=== PATIENT | male | born 1960 | race Caucasian/White ===

== ENCOUNTER → 2016-11-19 | Outpatient (CLI) | payer BC ==
--- NOTE | 2016-11-19 16:32 | CT ---
EXAMINATION TYPE: CT abdomen pelvis wo con DATE OF EXAM: 11/19/2016 COMPARISON: Prior CT 05/05/2013 HISTORY: Left flank and back pain x [address] DLP: 1077.20 mGycm Automated exposure control for dose reduction was used. TECHNIQUE: Helical acquisition of images from the lung bases through the pelvis. FINDINGS: Lack of contrast could compromise sensitivity. LUNG BASES: No significant abnormality is appreciated. Calcified granuloma posterior costophrenic sul cus is stable. AORTA: No significant abnormality is appreciated. LIVER/GB: Stable PANCREAS: No significant abnormality is seen. SPLEEN: No significant abnormality is seen. ADRENALS: No significant abnormality is seen. KIDNEYS: Multiple cystic foci are again noted within the kidneys as on prior exam. There is no eviden t hydronephrosis or renal calculus. No evident ureteral calculus. Suspect there may be ureteropelvic junction stenosis on the left however there is a caliber change in the proximal ureter. REPRODUCTIVE ORGANS: Prostate is enlarged. URINARY BLADDER: No significant abnormality is seen. BOWEL: Areas of wall thickening within the colon are nonspecific, colon is redundant. Difficult to e xclude a mucosal lesion. No evident bowel obstruction. The appendix is normal. FREE AIR: No Free Air is visible. ASCITES: None visible. PELVIC ADENOPATHY: None visualized. RETROPERITONEAL ADENOPATHY: No Retroperitoneal Adenopathy visible. OSSEOUS STRUCTURES: There is a spinal curvature. Degenerative disc changes are noted in the lumbar s pine.. IMPRESSION: NONCONTRAST EXAM. FINDINGS WITHIN THE KIDNEYS DESCRIBED. THERE MAY BE URETEROPELVIC JUNCTION STENO SIS ON THE LEFT. PROSTATIC ENLARGEMENT. FINDINGS IN THE COLON ARE NONSPECIFIC, DIFFICULT TO EXCLUDE A MUCOSAL LESION. Additional findings above.
== END | disposition home or self-care (01) ==
LOC: RADCTMAIN 13:44
PROVIDERS: ATTEND Family Medicine
DX: N40.0 Benign prostatic hyperplasia without lower urinary tract symptoms (principal); R10.9 Unspecified abdominal pain
CPT/HCPCS: 74176

== ENCOUNTER 2016-11-26 10:22 | Day surgery (SDC) | payer BC ==
[2016-11-23 08:44] VITALS: BMI 33.9
[~2016-11-26 10:22] MED LIST: LACTATED RINGERS 1,000 ML IV SCH; LIDOCAINE 1% 20 ML VIAL (10MG/ML) FOR IV START INTRADERMA PRN
[2016-11-26 11:44] VITALS: TEMP 98.1
[2016-11-26] MEDS ORDERED: LIDOCAINE 1% INJ 10MG/ML (20 ML MDV) ONE (12:07)
[2016-11-26] MEDS ORDERED: PROPOFOL 10 MG/ML 20 ML VIAL IV ONE (12:07)
[2016-11-26 12:37] VITALS: RESP 16
--- NOTE | 2016-11-26 12:42 | P.PCN ---
Date of Procedure: 11/26/16 Procedure(s) Performed: Preoperative diagnosis: Screening for neoplasia. Postoperative diagnosis: Sigmoid diverticulosis with no evidence of acute diverticulitis, strictures, polyps or cancer. Low-grade internal hemorrhoids not bleeding at the time of this exam. Preparation: HalfLytely prep. Sedation: Was provided by anesthesia. Brief clinical history: The patient is a 56-year-old male who is scheduled for this evaluation for screening for neoplasia age being her risk factor. The patient has history of rectal bleeding and anemia. Recent CT of the abdomen showed thickening of the bowel wall in various areas. His last exam was in October 2011. He has no abdominal complaints at this time or bleeding. Procedure: With the patient on his left lateral decubitus position and after informed consent and adequate sedation, the perianal area was inspected and it did not show any fissures or fistulas. There were no masses felt on digital rectal examination. The Olympus CFQ 160L video colonoscope was then inserted in the rectum in the usual fashion and advanced to the cecum. The mucosa appeared healthy. No polyps or tumors were seen. There was several diverticular orifices seen scattered in the sigmoid with no evidence of acute diverticulitis or strictures. I retroflexed the endoscope in the rectum before the endoscope was withdrawn. Low-grade internal hemorrhoids were noted with no evidence of bleeding. The patient tolerated the procedure well. Plan: The patient was reassured. Discussed dietary measures and local care for hemorrhoids. He will follow-up with you as planned and I recommended repeat exam in 10 years.
[2016-11-26 12:45] VITALS: BP 138/84; PULSE 67
== END 2016-11-26 13:14 | disposition home or self-care (01) ==
LOC: ORWHC2ENDO 10:22
DX: K57.30 Diverticulosis of large intestine without perforation or abscess without bleeding (principal); K64.8 Other hemorrhoids; D64.9 Anemia, unspecified; K21.9 Gastro-esophageal reflux disease without esophagitis; I10 Essential (primary) hypertension; G47.33 Obstructive sleep apnea (adult) (pediatric); Z99.89 Dependence on other enabling machines and devices; Z79.82 Long term (current) use of aspirin; Z79.899 Other long term (current) drug therapy; Z88.0 Allergy status to penicillin
CPT/HCPCS: 45378; J2001; J2704

== ENCOUNTER → 2016-12-18 | Outpatient (CLI) | payer BC ==
--- NOTE | 2016-12-18 15:21 | CT ---
EXAMINATION TYPE: CT abdomen wo/w con DATE OF EXAM: 12/18/2016 COMPARISON: NONE INDICATION: Renal cysts DLP: 1971 mGycm, Automated exposure control for dose reduction was used. CONTRAST: 100 ml mL of Omnipaque 300. Study performed with Oral Contrast TECHNIQUE: Axial images were obtained from above the diaphragm to the pubic rami in the axial plane a t 5 mm thick sections. Reconstructed images are reviewed on the computer in the coronal plane. FINDINGS: Limited CT sections are obtained the lung bases. There is a 0.8 cm calcification in the posterior me dial left lung base.. CT ABDOMEN: Liver: Hypodensities in the superior medial right lobe liver measuring 1.3 cm may represent hepatic c yst. Additional hepatic cyst may be in the medial aspect of the left lobe liver measuring 0.9 cm. Ser ies 3 image 15. Borders are indistinct and other etiologies are not excluded. Spleen: Normal Pancreas: Normal Adrenal glands: The adrenal glands are normal. Gallbladder: Normal Kidneys: No masses are evident. No hydronephrosis is present. Multiple cysts are present within the kidneys. There is a cyst at the anterior superior pole left kidney measuring 2.9 cm in -2 Hounsfield units. There is a posterior lateral cyst on the left measuring 5.7 cm and -80 Hounsfield units. 2 ad jacent cysts are within the superior lateral pole right kidney measuring 2.6 cm and 6 Hounsfield unit s and 5.4 cm and 0 Hounsfield units. There is a cyst at the inferior pole left kidney measuring 2.6 c m in -7 Hounsfield units. There may be an additional 2 cysts at the inferior pole left kidney measuri ng 5.3 cm in -6 Hounsfield units and 3.9 cm and 5 Hounsfield units. The inferior medial pole right re nal cyst is present measuring 3.7 cm and 10 Hounsfield units Aorta: Vascular calcification is within the aorta. Inferior vena cava: Normal. CT PELVIS: Loops of bowel within the abdomen and pelvis are normal. There are loops of bowel which are incom pletely distended or lack oral contrast limiting their evaluation. Appendix: Normal as visualized. IMPRESSIONS: 1. Multiple bilateral simple appearing renal cysts. 2. Probable hepatic cysts.
== END | disposition home or self-care (01) ==
LOC: RADCTMAIN 12:22
PROVIDERS: ATTEND Urology
DX: N28.1 Cyst of kidney, acquired (principal); Z88.0 Allergy status to penicillin
CPT/HCPCS: 74170; Q9967

== ENCOUNTER → 2019-12-17 | Outpatient (CLI) | payer BC ==
[2019-12-17 13:15] VITALS: BP 185/90; PULSE 81; RESP 18; TEMP 98.1
--- NOTE | 2019-12-17 13:57 | P.GSHP ---
History of Present Illness H&P Date: 12/17/19 Chief Complaint: lump in left breast Miguelangel is a 59 year old white male seen in consultation for Dr. Redman with a complaint of a lump in his right breast. This is located in the lower inner area and one is located in the upper inner area of the chest wall/breast. The lesion has increased in size over the past several months it is tender when pressure is applied to it. He has not noted any other lumps masses or nodules in his breast. He is not complaining of any nipple discharge. He has not had any trauma or infection in his breast. The patient has not noted any swelling or nodules on his testicles. Right breast ultrasound was performed on . This revealed at the 4 o'clock position of the right breast a circumscribed oval mass. This measured 2.4 cm x 1.8 cm. This is felt to be probable lipoma however continued follow-up was advised, previous measurement have been 1.9 x 0.9 cm. Family History: father: bladder cancer maternal grandmother: breast cancer paternal aunt: Possible cancer Paternal aunt: Leukemia paternal grandfather: lung cancer Surgical History: right shoulder surgery bilateral eye surgery left eye glaucoma right eye cataract left leg abdominal surgery/cyst infected Medical History: HTN glaucoma Social History: nicotine: former smoker 1/PPD alcohol: rare drugs: none - Constitutional Constitutional: Denies chills, Denies fever - EENT Eyes: bilateral as per HPI Ears: deny: decreased hearing, tinnitus Ears, nose, mouth and throat: Denies headache, Denies sore throat - Breasts Breasts: bilateral: as per HPI - Cardiovascular Cardiovascular: Reports high blood pressure - Respiratory Comment: former smoker Respiratory: Denies cough, Denies 7 - Gastrointestinal Gastrointestinal: Reports constipation - Genitourinary (Male) Genitourinary: Denies dysuria, Denies hematuria - Musculoskeletal Musculoskeletal: Denies myalgias - Integumentary Comment: Psoriasis - Neurological Neurological: Denies numbness, Denies weakness - Psychiatric Psychiatric: Denies anxiety, Denies depression - Endocrine Endocrine: Denies fatigue, Denies weight change - Hematologic/Lymphatic Comment: baby aspirin - Allergic/Immunologic Allergic/Immunologic: Reports as per HPI, Reports seasonal allergies Past Medical History Past Medical History: Hypertension, Skin Disorder, Sleep Apnea/CPAP/BIPAP Additional Past Medical History / Comment(s): migraines; psoriasis; History of Any Multi-Drug Resistant Organisms: None Reported Past Surgical History: Hernia Repair, Orthopedic Surgery Additional Past Surgical History / Comment(s): surgery for abdominal cyst; sinus surgery; rt shoulder surgery; achilles tendon-left; right foot spur removed; right eye vitreous detachment; right eye cataract; left eye glaucoma; Past Anesthesia/Blood Transfusion Reactions: No Reported Reaction Past Psychological History: No Psychological Hx Reported Smoking Status: Former smoker Past Alcohol Use History: Rare Additional Past Alcohol Use History / Comment(s): quit smoking - not sure when Past Drug Use History: None Reported - Past Family History Mother Family Medical History: No Reported History Additional Family Medical History / Comment(s): materanl grandmother breast cancer Father Family Medical History: Cancer Additional Family Medical History / Comment(s): bladder cancer; Medications and Allergies Home Medications Medication Instructions Recorded Confirmed Type Aspirin [Adult Low Dose Aspirin EC] 81 mg PO QAM 11/23/16 12/17/19 History Cetirizine HCl [Zyrtec] 10 mg PO DAILY 11/23/16 12/17/19 History Omeprazole [PriLOSEC] 20 mg PO QAM 11/23/16 12/17/19 History Stool Softner 2 tab PO HS 11/23/16 12/17/19 History hydroCHLOROthiazide [Hydrodiuril] 25 mg PO QAM 11/23/16 12/17/19 History lisinopriL [Zestril] 20 mg PO HS 11/23/16 12/17/19 History Multivitamins, Thera [Multivitamin 1 tab PO QAM 12/17/19 12/17/19 History (formulary)] Allergies Allergy/AdvReac Type Severity Reaction Status Date / Time Penicillins Allergy Severe stopped Verified 12/17/19 13:01 breathing Surgical - Exam Vital Signs Temp Pulse Resp BP Pulse Ox 98.1 F 81 18 185/90 98 12/17/19 13:05 12/17/19 13:05 12/17/19 13:05 12/17/19 13:05 12/17/19 13:05 BMI 35.9 - General obese - Eyes normal ocular movement - ENT no hearing loss - Neck trachea midline - Respiratory normal respiratory effort, clear to auscultation - Cardiovascular Rhythm: regular Heart Sounds: normal: S1, S2 - Abdomen Abdomen: soft, bowel sounds - Integumentary normal turgor - Neurologic no disoriented, no combative - Musculoskeletal normal gait - Psychiatric oriented to time, oriented to person, oriented to place, speech is normal, memory intact Breast examination: Palpation: Right breast: Multiple positional exam with fibrocystic changes, lower inner quadrant 2.5 cm mobile mass consistent with lipoma Upper chest 1 cm mass freely mobile possible sebaceous cyst versus lipoma Right axilla: No adenopathy of concern Left breast: Fibrocystic changes no dominant masses or nodules of concern Left axilla: No adenopathy of concern testicular exam: no lumps or masses of concern bilateral Results Ultrasound of the right breast revealed 2.4 cm x 1.8 cm lesion in the lower inner quadrant, this is increased in size from 1.9 x 0.9 cm felt to be most likely benign short interval follow-up recommended Assessment and Plan Assessment: Impression: 1. Right breast lumps 2 probable lipoma and possible cyst 2. Recent ultrasound of right breast reviewed ultrasound from 3. Hypertension 4. Glaucoma Plan: 1. FNA of lesion in lower inner breast recommended the lesion in the upper chest wall felt to be most likely a sebaceous cyst and no FNA is recommended for this 2. Depending on results of FNA most likely removal of both lesions in the operating room Risks and benefits of procedure discussed with the patient. Risks include but are not limited to bleeding, infection, reaction to anesthetic. He understands and wishes to proceed. Cc: DR. Redman encounter 30 minutes, > 50% of time in planning and counselling
--- NOTE | 2019-12-17 14:25 | P.PCN ---
Date of Procedure: 12/17/19 Preoperative Diagnosis: mass right breast lower inner quadrant Postoperative Diagnosis: same Procedure(s) Performed: FNA lesion right breast Surgeon: Emani Mckenna Pathology: other (specimen sent) Condition: stable Disposition: same day Indications for Procedure: FNA of mass right breast Description of Procedure: Signed consent was obtained for FNA of lesion in the right breast. The area was prepped using alcohol. A 22-gauge needle on a 10 mL syringe was used to obtain the specimen. This was inserted into the lesion and negative pressure was applied to the barrel of the syringe. Following this the specimen was placed on a slide. Specimen sent to pathology. Patient tolerated procedure in stable condition.
== END | disposition home or self-care (01) ==
LOC: WWCWWP 12:35
PROVIDERS: ATTEND Surgery
DX: N64.9 Disorder of breast, unspecified (principal); N63.14 Unspecified lump in the right breast, lower inner quadrant
CPT/HCPCS: 88173

== ENCOUNTER → 2020-02-19 | Outpatient (CLI) | payer BC ==
[2020-02-19 12:20] VITALS: BP 179/99; PULSE 67; RESP 18; TEMP 98
--- NOTE | 2020-02-19 12:29 | P.PN ---
Subjective Progress Note Date: 02/19/20 Principal diagnosis: 2 lumps right breast Miguelangel is a 59 year old white male seen in consultation for Dr. Redman with a complaint of a lump in his right breast. This is located in the lower inner area and one is located in the upper inner area of the chest wall/breast. The lesion has increased in size over the past several months it is tender when pressure is applied to it. He has not noted any other lumps masses or nodules in his breast. He is not complaining of any nipple discharge. He has not had any trauma or infection in his breast. The patient has not noted any swelling or nodules on his testicles. [place] [address] this was hypercellular consistent with fragments of adipose tissue. Right breast ultrasound was performed on . This revealed at the 4 o'clock position of the right breast a circumscribed oval mass. This measured 2.4 cm x 1.8 cm. This is felt to be probable lipoma however continued follow-up was advised, previous measurement have been 1.9 x 0.9 cm. Family History: father: bladder cancer maternal grandmother: breast cancer paternal aunt: Possible cancer Paternal aunt: Leukemia paternal grandfather: lung cancer Surgical History: right shoulder surgery bilateral eye surgery left eye glaucoma right eye cataract left leg abdominal surgery/cyst infected Medical History: HTN glaucoma Social History: nicotine: former smoker 1/PPD alcohol: rare drugs: none - Constitutional Constitutional: Denies chills, Denies fever - EENT Eyes: bilateral as per HPI Ears: deny: decreased hearing, tinnitus Ears, nose, mouth and throat: Denies headache, Denies sore throat - Breasts Breasts: bilateral: as per HPI - Cardiovascular Cardiovascular: Reports high blood pressure - Respiratory Comment: former smoker Respiratory: Denies cough - Gastrointestinal Gastrointestinal: Reports constipation - Genitourinary (Male) Genitourinary: Denies dysuria, Denies hematuria - Musculoskeletal Musculoskeletal: Denies myalgias - Integumentary Comment: Psoriasis - Neurological Neurological: Denies numbness, Denies weakness - Psychiatric Psychiatric: Denies anxiety, Denies depression - Endocrine Endocrine: Denies fatigue, Denies weight change - Hematologic/Lymphatic Comment: baby aspirin - Allergic/Immunologic Allergic/Immunologic: Reports as per HPI, Reports seasonal allergies Objective - Vital Signs Vital signs: Vital Signs Temp 98.0 F 02/19/20 12:15 Pulse 67 02/19/20 12:15 Resp 18 02/19/20 12:15 BP 179/99 02/19/20 12:15 Pulse Ox 97 02/19/20 12:15 Intake & Output 02/18/20 02/19/20 02/19/20 18:59 06:59 18:59 Weight 120.202 kg - Exam BMI 35.9 - Constitutional General appearance: Present: obese - EENT Eyes: Present: EOMI ENT: Present: hearing grossly normal - Neck Neck: Present: normal ROM - Respiratory Respiratory: bilateral: CTA - Cardiovascular Rhythm: regular Heart sounds: normal: S1, S2 - Gastrointestinal General gastrointestinal: Present: soft - Integumentary Integumentary: Present: normal turgor - Musculoskeletal Musculoskeletal: Present: gait normal - Psychiatric Psychiatric: Present: A&O x's 3, appropriate affect - Additional findings Additional findings: breast exam: Palpation: Right breast: Multi-positional exam with fibrocystic changes, lower inner quadrant 2.5 cm mobile mass consistent with lipoma Upper chest 1 cm mass freely mobile possible sebaceous cyst versus lipoma Right axilla: No adenopathy of concern Left breast: Fibrocystic changes lower inner quadrant approximately 1 cm mobile mass Left axilla: No adenopathy of concern testicular exam on 12-17-19 no lumps or masses of concern Assessment and Plan Assessment: Impression: 1. Right breast lumps 2 probable lipoma and possible cyst 2. Left breast nodule lower inner quadrant 3. Hypertension 4. Glaucoma Plan: 1. Removal of 2 areas of palpable abnormality right breast in the operating room and left breast lesion Risks and benefits of procedure discussed with the patient. Risks include but are not limited to bleeding, infection, reaction to the anesthetic, oral regrowth of the lesion. He understands and wishes to proceed. CC: Dr. Redman encounter 15 minutes, > 50% of time in planning and counselling
== END | disposition home or self-care (01) ==
LOC: WWCWWP 11:51
PROVIDERS: ATTEND Surgery
DX: Z53.9 Procedure and treatment not carried out, unspecified reason (principal)

== ENCOUNTER → 2020-02-23 | Day surgery (SDC) | payer BC ==
[2020-02-17 11:11] VITALS: BMI 35.9
[~2020-02-23] MED LIST changes: +DEXAMETHASONE SOD PHOSPHATE 4 MG/ML 1 ML VIAL IV ONE; +HEPARIN SODIUM,PORCINE 5,000 UNIT/ML 1 ML VIAL SQ PRN; +HYDROmorphone 0.5 MG/0.5 ML SYRINGE IVP PRN; +KETOROLAC 15 MG/ML 1 ML VIAL IVP ONE; +LACTATED RINGERS 1,000 ML IV ONE; +LIDOCAINE 1% (10MG/ML) FOR IV START INTRADERMA PRN; -LIDOCAINE 1% 20 ML VIAL (10MG/ML) FOR IV START INTRADERMA PRN; +LIDOCAINE 1% INJ 10MG/ML (20 ML MDV) ONE; +LIDOCAINE 1% INJ 10MG/ML (20 ML MDV) SQ ONE; +MIDAZOLAM 2 MG/2 ML VIAL IV PRN; +MIDAZOLAM 2 MG/2 ML VIAL ONE; +ONDANSETRON 4 MG/2 ML VIAL IVP ONE; +PROPOFOL 10 MG/ML 20 ML VIAL IV ONE; +Pre Op ABX Message 1 EACH MISC MISCELLANE ONE; +ePHEDrine SULFATE/0.9% NACL/PF 50 MG/5 ML SYRINGE IV ONE; +fentaNYL (PF) 50 MCG/ML 2 ML AMP ONE
--- NOTE | 2020-02-23 09:27 | P.OP ---
Date of Procedure: 02/23/20 Preoperative Diagnosis: Nodular left breast lower inner quadrant, nodule right breast superior 12 o'clock position, and right lower inner quadrant Postoperative Diagnosis: Same Procedure(s) Performed: Excision nodular left breast 1 and right breast 2 Anesthesia: KIMMYA Surgeon: Emani Mckenna Estimated Blood Loss (ml): 5 IV fluids (ml): 600 Pathology: other (Nodule left breast 1 and right breast 2) Condition: stable Disposition: same day Indications for Procedure: Palpable nodules both breast Operative Findings: Probable lipoma 3 sites, left breast 1 and right breast 2 Description of Procedure: The patient is a 59-year-old white male who presented with nodules in the right breast 2 left breast 1. The patient was taken to the operating room and both breasts were prepped and draped following induction of anesthesia. The left breast was approached initially. A small incision was made and approximately 2 and half with 1/2 cm lipomatous like lesion was excised. After assured that hemostasis was attained the deep tissues were closed using 3-0 Vicryl suture followed by closure of the skin with 4-0 Monocryl. The lower inner quadrant of the right breast was then addressed. An incision was made approximately 2.5 x 2.5 cm lipoma was excised. After assured that hemostasis was attained the deep tissues were closed using 3-0 Vicryl suture followed by a 4-0 Monocryl. Following this the right superior lesion was addressed. An incision was made and approximately 3 cm x 3 cm lipomatous like lesion was excised. The excision was down to the muscle of the chest wall. After assured that hemostasis was attained the deep tissues were closed using 3-0 Vicryl suture followed by 4-0 Monocryl. Steri-Strips were applied to all sites. The patient tolerated the procedure in stable condition.
--- NOTE | 2020-02-23 09:29 | P.DS ---
Providers Attending physician: Emani Mckenna Primary care physician: Ed Redman Plan - Discharge Summary Discharge Rx Participant: No New Discharge Prescriptions: No Action hydroCHLOROthiazide [Hydrodiuril] 25 mg PO QAM Cetirizine HCl [Zyrtec] 10 mg PO DAILY Omeprazole [PriLOSEC] 20 mg PO QAM lisinopriL [Zestril] 40 mg PO HS Aspirin [Adult Low Dose Aspirin EC] 81 mg PO QAM Stool Softner 1 tab PO HS Multivitamins, Thera [Multivitamin (formulary)] 1 tab PO QAM Discharge Medication List Aspirin [Adult Low Dose Aspirin EC] 81 mg PO QAM 11/23/16 [History] Cetirizine HCl [Zyrtec] 10 mg PO DAILY 11/23/16 [History] Omeprazole [PriLOSEC] 20 mg PO QAM 11/23/16 [History] Stool Softner 1 tab PO HS 11/23/16 [History] hydroCHLOROthiazide [Hydrodiuril] 25 mg PO QAM 11/23/16 [History] lisinopriL [Zestril] 40 mg PO HS 11/23/16 [History] Multivitamins, Thera [Multivitamin (formulary)] 1 tab PO QAM 12/17/19 [History] Follow up Appointment(s)/Referral(s): Emani Mckenna MD [STAFF PHYSICIAN] - 1 Week Activity/Diet/Wound Care/Special Instructions: do not drive today may shower after 48 hours Discharge Disposition: HOME SELF-CARE
[2020-02-23 09:41] VITALS: TEMP 98.1
[2020-02-23 10:12] VITALS: RESP 17
[2020-02-23 10:24] VITALS: BP 154/82; PULSE 78
== END | disposition home or self-care (01) ==
LOC: OR 07:18
PROVIDERS: ATTEND Surgery
DX: N60.31 Fibrosclerosis of right breast (principal); N60.32 Fibrosclerosis of left breast; D17.39 Benign lipomatous neoplasm of skin and subcutaneous tissue of other sites; H40.9 Unspecified glaucoma; I10 Essential (primary) hypertension; G47.33 Obstructive sleep apnea (adult) (pediatric); K21.9 Gastro-esophageal reflux disease without esophagitis; L40.9 Psoriasis, unspecified; Z80.52 Family history of malignant neoplasm of bladder; Z80.3 Family history of malignant neoplasm of breast; Z80.6 Family history of leukemia; Z80.1 Family history of malignant neoplasm of trachea, bronchus and lung; Z98.890 Other specified postprocedural states; Z98.41 Cataract extraction status, right eye; Z87.891 Personal history of nicotine dependence; Z88.0 Allergy status to penicillin; Z99.89 Dependence on other enabling machines and devices; Z86.69 Personal history of other diseases of the nervous system and sense organs; Z79.899 Other long term (current) drug therapy; Z79.82 Long term (current) use of aspirin
CPT/HCPCS: 19120; 88305; J2250; J1644; J1100; J2405; J2001; J3010; J1885; J2704

== ENCOUNTER → 2020-03-03 | Outpatient (CLI) | payer BC ==
--- NOTE | 2020-03-03 16:02 | P.PN ---
Progress Note - Text Progress Note Date: 03/03/20 Miguelangel is a 59-year-old white male status post excision of 3 masses to in his right breast and one in the left on . All were consistent with benign lipomas. He tolerated the procedure well without difficulty. Physical exam: All incisions clean and dry No evidence of infection or hematoma Fashion: 1. Benign lipomas 2 in the right breast one in the left Plan: 1. Follow-up on a PRN basis CC: Dr. Redman
[2020-03-03 16:25] VITALS: BP 176/76; PULSE 84; RESP 18; TEMP 98.6
== END | disposition home or self-care (01) ==
LOC: WWCWWP 15:49
PROVIDERS: ATTEND Surgery
DX: Z53.9 Procedure and treatment not carried out, unspecified reason (principal)

== ENCOUNTER 2021-08-02 16:00 | Observation (INO) | payer BC ==
--- NOTE | 2021-08-02 18:03 | US ---
EXAMINATION TYPE: US scrotum with doppler. Grayscale and color Doppler Duplex imaging performed of esau mcleod scrotum. DATE OF EXAM: 08/02/2021 COMPARISON: NONE CLINICAL HISTORY: injury. Patient states he has a lower abdominal hernia and is beginning to feel it in his testicles. Hx vasectomy EXAM MEASUREMENTS: TESTICLES: Right Testicle: 4.3 x 2.1 x 3.0 cm; 0.3 x 0.4 x 0.3 cm cystic area Left Testicle: 3.5 x 1.9 x 2.8 cm EPIDIDYMIS HEAD: Right Epididymis: 0.8 x 1.3 x 1.0 cm; heterogenous appearance Left Epididymis: 1.3 x 1.0 x 1.2 cm; cystic area measuring 0.5 x 0.4 x 0.5 cm Doppler performed to assess for testicular vascularity; good bilateral color flow and waveforms are s een. There is no evidence of testicular torsion. Presence of hydroceles: no Presence of varicoceles: no IMPRESSION: There are small cyst of the right testicle. No evidence of testicular torsion. No solid testicular ma ss. No free fluid. Small left epididymal cyst.
[2021-08-02 20:26] LABS: Appearance,Urine Clear (Clear); Bilirubin,Urine Negative (Negative); Blood,Urine Negative (Negative); Color,Urine Yellow; Glucose,Urine (UA) Negative (Negative); Ketones,Urine 1+ (Negative); Leukocyte Esterase,Urine Negative (Negative); Nitrite,Urine Negative (Negative); Protein,Urine Trace (Negative); Specific Gravity,Urine 1.021 (1.001-1.035); Urobilinogen,Urine <2.0 mg/dL (<2.0)
[2021-08-02] MEDS ORDERED: MORPHINE SULFATE 4 MG/ML SYRINGE IV STA (21:44)
[2021-08-02] MEDS ORDERED: SODIUM CHLORIDE 0.9% 1,000 ML IV STA (21:44)
[2021-08-02] MEDS ORDERED: ONDANSETRON 4 MG/2 ML VIAL IVP STA (21:44)
[2021-08-02] MEDS ORDERED: PANTOPRAZOLE 40 MG/10 ML VIAL IVP STA (21:44)
--- NOTE | 2021-08-02 21:48 | ED ---
Abdominal Pain HPI - General Chief Complaint: Urogenital Stated Complaint: Hernia,sent by Dr Redman Time Seen by Provider: 08/02/21 21:29 Source: patient, RN notes reviewed, old records reviewed Mode of arrival: ambulatory Limitations: no limitations - History of Present Illness Initial Comments: This is a 61-year-old male presents today for evaluation of groin hernia or groin pain. History of hernia in the past. Mild nausea no vomiting symptoms be candace at work while lifting or moving. Patient did have a bowel movement yesterday. No other complaints MD Complaint: abdominal pain -: days(s) Location: suprapubic Radiation: suprapubic Migration to: suprapubic Severity: moderate Severity scale (1-10): 6 Quality: aching, fullness, dull Consistency: intermittent Improves With: nothing Worsens With: nothing Associated Symptoms: nausea Treatments Prior to Arrival: other (0) - Related Data Home Medications Medication Instructions Recorded Confirmed Cetirizine HCl [Zyrtec] 10 mg PO HS 11/23/16 08/02/21 Omeprazole [PriLOSEC] 20 mg PO DAILY 11/23/16 08/02/21 Docusate [Colace] 200 mg PO HS 08/02/21 08/02/21 Finasteride [Proscar] 5 mg PO DAILY 08/02/21 08/02/21 Latanoprost/Pf [Latanoprost 0.005% 1 drop LEFT EYE HS 08/02/21 08/02/21 Eye Drop] Multivitamin/Iron/Folic Acid 1 tab PO DAILY 08/02/21 08/02/21 [Centrum Complete Multivit Tab] amLODIPine [Norvasc] 5 mg PO HS 08/02/21 08/02/21 lisinopriL 40 mg PO DAILY 08/02/21 08/02/21 Previous Rx's Medication Instructions Recorded oxyCODONE HCL [OxyIR] 5 mg PO Q6H PRN 3 Days #6 tab 08/04/21 oxyCODONE HCL [OxyIR] 5 mg PO Q6H PRN 3 Days #6 tab 08/04/21 Allergies Allergy/AdvReac Type Severity Reaction Status Date / Time Penicillins Allergy Severe Anaphylaxis Verified 08/02/21 22:50 Review of Systems ROS Statement: Those systems with pertinent positive or pertinent negative responses have been documented in the HPI. ROS Other: All systems not noted in ROS Statement are negative. Past Medical History Past Medical History: GERD/Reflux, Hypertension, Skin Disorder, Sleep Apnea/CPAP/BIPAP Additional Past Medical History / Comment(s): migraines; psoriasis; cpap set at 11. had COVID thanks2019-continues to experience some shortness of breath and loss of taste History of Any Multi-Drug Resistant Organisms: None Reported Past Surgical History: Hernia Repair, Orthopedic Surgery Additional Past Surgical History / Comment(s): surgery for abdominal cyst; sinus surgery; rt shoulder surgery; achilles tendon-left; right foot spur removed; right eye vitreous detachment; right eye cataract; left eye glaucoma; precancer removed from face; excisional biopsy of left breast lipoma 03/03/20; excisional biopsy of two right breast lipomas 02/23/20; Past Anesthesia/Blood Transfusion Reactions: No Reported Reaction Past Psychological History: No Psychological Hx Reported Smoking Status: Former smoker Past Alcohol Use History: Rare Past Drug Use History: None Reported - Past Family History Mother Family Medical History: No Reported History Additional Family Medical History / Comment(s): materal grandmother breast cancer Father Family Medical History: Cancer Additional Family Medical History / Comment(s): bladder cancer; General Exam Limitations: no limitations General appearance: alert, in no apparent distress Head exam: Present: atraumatic, normocephalic, normal inspection Eye exam: Present: normal appearance, PERRL, EOMI. Absent: scleral icterus, conjunctival injection, periorbital swelling ENT exam: Present: normal exam, mucous membranes moist Neck exam: Present: normal inspection. Absent: tenderness, meningismus, lymphadenopathy Respiratory exam: Present: normal lung sounds bilaterally. Absent: respiratory distress, wheezes, rales, rhonchi, stridor Cardiovascular Exam: Present: regular rate, normal rhythm, normal heart sounds. Absent: systolic murmur, diastolic murmur, rubs, gallop, clicks GI/Abdominal exam: Present: soft, distended, tenderness, normal bowel sounds, mass (Hernia). Absent: guarding, rebound, rigid Extremities exam: Present: normal inspection, full ROM, normal capillary refill. Absent: tenderness, pedal edema, joint swelling, calf tenderness Back exam: Present: normal inspection Neurological exam: Present: alert, oriented X3, CN II-XII intact Psychiatric exam: Present: normal affect, normal mood Skin exam: Present: warm, dry, intact, normal color. Absent: rash Course Vital Signs 08/02/21 08/02/21 17:45 22:51 Temperature 97.9 F Pulse Rate 69 70 Respiratory 18 Rate Blood Pressure 174/82 169/90 O2 Sat by Pulse 98 97 Oximetry - Reevaluation(s) Reevaluation #1: 08/02/21 Medical record is reviewed Reevaluation #2: 08/02/21 Patient continues to have pain Reevaluation #3: 08/02/21 Unable to reduce hernia here in the ER Reevaluation #4: 08/02/21 Spoke patient and family regarding results of findings, questions answered - Consultations Consultation #1: Spoke with on-call surgery and appendectomy to see the patient for evaluation Medical Decision Making - Medical Decision Making 61 male for evaluation regards to hernia patient is positive for hernia patient be admitted for surgical evaluation and treatment - Lab Data Result diagrams: 08/03/21 07:14 08/03/21 07:14 Lab Results 08/02/21 08/02/21 08/02/21 Range/Units 20:11 23:10 23:10 WBC 6.5 (3.8-10.6) k/uL RBC 3.81 L (4.30-5.90) m/uL Hgb 11.0 L (13.0-17.5) gm/dL Hct 34.6 L (39.0-53.0) % MCV 90.6 (80.0-100.0) fL MCH 28.9 (25.0-35.0) pg MCHC 31.8 (31.0-37.0) g/dL RDW 14.1 (11.5-15.5) % Plt Count 271 (150-450) k/uL MPV 8.4 Neutrophils % 53 % Lymphocytes % 29 % Monocytes % 7 % Eosinophils % 6 % Basophils % 1 % Neutrophils # 3.4 (1.3-7.7) k/uL Lymphocytes # 1.9 (1.0-4.8) k/uL Monocytes # 0.5 (0-1.0) k/uL Eosinophils # 0.4 (0-0.7) k/uL Basophils # 0.1 (0-0.2) k/uL Hypochromasia Slight PT (9.0-12.0) sec INR (<1.2) APTT (22.0-30.0) sec Sodium 139 (137-145) mmol/L Potassium 3.8 (3.5-5.1) mmol/L Chloride 106 (98-107) mmol/L Carbon Dioxide 27 (22-30) mmol/L Anion Gap 6 mmol/L BUN 13 (9-20) mg/dL Creatinine 0.92 (0.66-1.25) mg/dL Est GFR (CKD-EPI)AfAm >90 (>60 ml/min/1.73 sqM) Est GFR (CKD-EPI)NonAf 89 (>60 ml/min/1.73 sqM) Glucose 87 (74-99) mg/dL Plasma Lactic Acid Vasyl (0.7-2.0) mmol/L Calcium 9.1 (8.4-10.2) mg/dL Total Bilirubin 0.4 (0.2-1.3) mg/dL AST 25 (17-59) U/L ALT 20 (4-49) U/L Alkaline Phosphatase 72 (38-126) U/L Total Protein 6.9 (6.3-8.2) g/dL Albumin 4.0 (3.5-5.0) g/dL Amylase 38 (30-110) U/L Lipase 63 (23-300) U/L Urine Color Yellow Urine Appearance Clear (Clear) Urine pH 6.0 (5.0-8.0) Ur Specific [place] 1.021 (1.001-1.035) Urine Protein Trace H (Negative) Urine Glucose (UA) Negative (Negative) Urine Ketones 1+ H (Negative) Urine Blood Negative (Negative) Urine Nitrite Negative (Negative) Urine Bilirubin Negative (Negative) Urine Urobilinogen <2.0 (<2.0) mg/dL Ur Leukocyte Esterase Negative (Negative) 08/02/21 08/02/21 Range/Units 23:10 23:10 WBC (3.8-10.6) k/uL RBC (4.30-5.90) m/uL Hgb (13.0-17.5) gm/dL Hct (39.0-53.0) % MCV (80.0-100.0) fL MCH (25.0-35.0) pg MCHC (31.0-37.0) g/dL RDW (11.5-15.5) % Plt Count (150-450) k/uL MPV Neutrophils % % Lymphocytes % % Monocytes % % Eosinophils % % Basophils % % Neutrophils # (1.3-7.7) k/uL Lymphocytes # (1.0-4.8) k/uL Monocytes # (0-1.0) k/uL Eosinophils # (0-0.7) k/uL Basophils # (0-0.2) k/uL Hypochromasia PT 11.2 (9.0-12.0) sec INR 1.0 (<1.2) APTT 25.0 (22.0-30.0) sec Sodium (137-145) mmol/L Potassium (3.5-5.1) mmol/L Chloride (98-107) mmol/L Carbon Dioxide (22-30) mmol/L Anion Gap mmol/L BUN (9-20) mg/dL Creatinine (0.66-1.25) mg/dL Est GFR (CKD-EPI)AfAm (>60 ml/min/1.73 sqM) Est GFR (CKD-EPI)NonAf (>60 ml/min/1.73 sqM) Glucose (74-99) mg/dL Plasma Lactic Acid Vasyl 1.2 (0.7-2.0) mmol/L Calcium (8.4-10.2) mg/dL Total Bilirubin (0.2-1.3) mg/dL AST (17-59) U/L ALT (4-49) U/L Alkaline Phosphatase (38-126) U/L Total Protein (6.3-8.2) g/dL Albumin (3.5-5.0) g/dL Amylase (30-110) U/L Lipase (23-300) U/L Urine Color Urine Appearance (Clear) Urine pH (5.0-8.0) Ur Specific [place] (1.001-1.035) Urine Protein (Negative) Urine Glucose (UA) (Negative) Urine Ketones (Negative) Urine Blood (Negative) Urine Nitrite (Negative) Urine Bilirubin (Negative) Urine Urobilinogen (<2.0) mg/dL Ur Leukocyte Esterase (Negative) - Radiology Data Radiology results: report reviewed (CT of the abdomen and pelvis is positive for hernia), image reviewed Disposition Clinical Impression: Left inguinal hernia, Abdominal pain Disposition: ADMITTED IP TO THIS HOSP Condition: Good Is patient prescribed a controlled substance at d/c from ED?: No
--- NOTE | 2021-08-02 22:30 | CT ---
EXAMINATION TYPE: CT abdomen pelvis wo con DATE OF EXAM: 08/02/2021 COMPARISON: 12/18/2016 HISTORY: lower abd pain CT DLP: 1353.4 mGycm Automated exposure control for dose reduction was used. Images obtained from the diaphragm to the floor of the pelvis with no contrast. Lung bases are clear of consolidation. There are small calcified granuloma left lower lobe. Heart siz e is normal. No pericardial effusion. Liver is intact. Spleen is intact. There is no evidence of pancreatic mass. The gallbladder appears n ormal. There is no adrenal mass. There are numerous bilateral renal cortical cysts that measure up to 10 cm. No definite hydronephrosis. There are cysts at both renal melinda. No retroperitoneal adenopathy. Appen camilo is posterior and appears normal. Bladder distends smoothly. No inguinal hernia. No free fluid in the pelvis. Prostate measures 5.5 cm. There is no mesenteric edema. No ascites or free air. No sign of a bowel obstruction. There are spond ylotic changes in the lumbar spine. There is mild lumbar levoscoliosis. There is vacuum disc at L4-5 and L5-S1. The bony pelvis is intact. The hip joints are intact. IMPRESSION: No acute abnormality in the abdomen pelvis. Numerous renal cysts. No evidence of renal obstruction. N o change compared to old exam.
[2021-08-02 23:29] LABS: Basophils # (A) 0.1 k/uL (0-0.2); Basophils % (A) 1 %; Eosinophils # (A) 0.4 k/uL (0-0.7); Eosinophils % (A) 6 %; HCT 34.6 % (39.0-53.0); Hypochromasia Slight; Lymphocytes # (A) 1.9 k/uL (1.0-4.8); Lymphocytes % (A) 29 %; MCH 28.9 pg (25.0-35.0); MCHC 31.8 g/dL (31.0-37.0); MCV 90.6 fL (80.0-100.0); Mean Platelet Volume 8.4; Monocytes # (A) 0.5 k/uL (0-1.0); Monocytes % (A) 7 %; Neutrophils # (A) 3.4 k/uL (1.3-7.7); Neutrophils % (A) 53 %; Platelet Count 271 k/uL (150-450); RBC 3.81 m/uL (4.30-5.90); RDW 14.1 % (11.5-15.5); WBC 6.5 k/uL (3.8-10.6)
[2021-08-02] MEDS ORDERED: ONDANSETRON 4 MG/2 ML VIAL IVP PRN (23:31)
[2021-08-02] MEDS ORDERED: NALOXONE 0.4 MG/ML 1 ML VIAL IV PRN (23:31)
[2021-08-02 23:41] LABS: Prothrombin Time 11.2 sec (9.0-12.0)
[2021-08-02 23:44] LABS: ALT 20 U/L (4-49); AST 25 U/L (17-59); African American GFR (CKD) >90 (>60 ml/min/1.73 sqM); Alkaline Phosphatase 72 U/L (38-126); Amylase 38 U/L (30-110); Anion Gap 6 mmol/L; Blood Urea Nitrogen 13 mg/dL (9-20); Calcium 9.1 mg/dL (8.4-10.2); Carbon Dioxide 27 mmol/L (22-30); Chloride 106 mmol/L (98-107); Glucose 87 mg/dL (74-99); Lipase 63 U/L (23-300); Non-African American GFR(CKD) 89 (>60 ml/min/1.73 sqM); Potassium 3.8 mmol/L (3.5-5.1); Sodium 139 mmol/L (137-145); Total Bilirubin 0.4 mg/dL (0.2-1.3); Total Protein 6.9 g/dL (6.3-8.2)
[2021-08-03] MEDS: SODIUM CHLORIDE 0.9% 1,000 ML IV SCH ×4 (00:19→20:11)
[2021-08-03] MEDS: amLODIPine 5 MG TAB PO SCH ×2 (02:16→20:11)
[2021-08-03 07:57] LABS: Basophils # (A) 0.1 k/uL (0-0.2); Basophils % (A) 1 %; Eosinophils # (A) 0.4 k/uL (0-0.7); Eosinophils % (A) 6 %; HCT 34.5 % (39.0-53.0); HGB 10.9 gm/dL (13.0-17.5); Hypochromasia Slight; Lymphocytes # (A) 1.7 k/uL (1.0-4.8); Lymphocytes % (A) 25 %; MCH 28.8 pg (25.0-35.0); MCHC 31.7 g/dL (31.0-37.0); MCV 90.9 fL (80.0-100.0); Mean Platelet Volume 8.4; Monocytes # (A) 0.5 k/uL (0-1.0); Monocytes % (A) 7 %; Neutrophils # (A) 3.8 k/uL (1.3-7.7); Neutrophils % (A) 57 %; Platelet Count 273 k/uL (150-450); RBC 3.79 m/uL (4.30-5.90); RDW 14.1 % (11.5-15.5); WBC 6.7 k/uL (3.8-10.6)
[2021-08-03 08:07] LABS: ALT 20 U/L (4-49); AST 25 U/L (17-59); African American GFR (CKD) >90 (>60 ml/min/1.73 sqM); Albumin 3.8 g/dL (3.5-5.0); Alkaline Phosphatase 64 U/L (38-126); Anion Gap 7 mmol/L; Blood Urea Nitrogen 12 mg/dL (9-20); Calcium 8.7 mg/dL (8.4-10.2); Carbon Dioxide 27 mmol/L (22-30); Chloride 106 mmol/L (98-107); Glucose 91 mg/dL (74-99); Lipase 57 U/L (23-300); Magnesium 2.1 mg/dL (1.6-2.3); Non-African American GFR(CKD) >90 (>60 ml/min/1.73 sqM); Phosphorus 3.4 mg/dL (2.5-4.5); Sodium 140 mmol/L (137-145); Total Bilirubin 0.4 mg/dL (0.2-1.3); Total Protein 6.6 g/dL (6.3-8.2)
[2021-08-03] MEDS: PANTOPRAZOLE 40 MG/10 ML VIAL IV SCH (09:38)
[2021-08-03] MEDS: lisinopriL 20 MG TAB PO SCH (09:39)
[2021-08-03] MEDS: MORPHINE SULFATE 4 MG/ML SYRINGE IV PRN (09:45)
--- NOTE | 2021-08-03 11:31 | P.GSHP ---
History of Present Illness H&P Date: 08/03/21 CHIEF COMPLAINT: Left inguinal hernia HISTORY OF PRESENT ILLNESS: This is a 60-year-old male who presents hospital with complaints of left groin and scrotal pain. Symptoms occurred on Saturday after he had been working on his deck and lifted some heavy boards. He reports he had pain and bulging noted in the left groin area. He was rating his pain 9 out of 10. Today's rating his pain about a 7 out of 10. He has required to have a right inguinal hernia repair surgery years ago Dr. Stephens. Patient reports having nausea. Patient has been able to have bowel movements. Denies any difficulty urinating but does note some discomfort at the end of his stream. Denies any fever chills or sweats. Patient had a computed tomography scan of the abdomen and pelvis which the addendum on the CAT scan reported a 1.8 cm left fat-containing scrotal hernia. PAST MEDICAL HISTORY: See list. PAST SURGICAL HISTORY: See list. MEDICATIONS: See list. ALLERGIES: See list. SOCIAL HISTORY: No illicit drug use. REVIEW OF SYSTEMS: CONSTITUTIONAL: Denies fever or chills. HEENT: Denies blurred vision, vision changes, or eye pain. Denies hemoptysis CARDIOVASCULAR: Denies chest pain or pressure. RESPIRATORY: No shortness of breath. GASTROINTESTINAL: See HPI for pertinent findings HEMATOLOGIC: Denies bleeding disorders. GENITOURINARY: Denies any blood in urine or increased urinary frequency. SKIN: Denies pruitis. Denies rash. PHYSICAL EXAM: VITAL SIGNS: Reviewed GENERAL: Well-developed in no acute distress. HEENT: No sclera icterus. Extraocular movements grossly intact. Moist buccal mucosa. Head is atraumatic, normocephalic. No nasal drainage. ABDOMEN: Soft. Nondistended. Nontender NEUROLOGIC: Alert and oriented. Cranial nerves II through XII grossly intact. : Patient has swelling and tenderness noted in the left groin. There is swelling noted in the left side of the scrotum. Patient is tender with palpation of the left side of the scrotum. LABORATORY DATA: WBC 6.7H she be 10.9 platelets 273 Sodium 140 potassium 4.0 creatinine 0.91 Lactic acid 1.2 LFTs normal Lipase 57 urinalysis no blood noted no evidence of infection IMAGING: Computed tomography scan abdomen and pelvis 1.8 cm diameter left-sided fat- containing scrotal hernia. Numerous renal cysts. No evidence of renal obstruction. ASSESSMENT: 1. Left-sided fat-containing scrotal hernia measuring 1.8 cm in diameter PLAN: -Patient scheduled for repair of hernia today with Dr. Basilio -Keep patient nothing by mouth -Continue IV fluids -Continue pain medication as needed Physician Dredge Runner note has been reviewed by physician. Signing provider agrees with the documented findings, assessment, and plan of care. I have personally seen and examined the patient, reviewed the DISHCLOTH FOLDER /PAs history, exam and MDM and agree with the assessment and plan as written. Based on total visit time, I have performed more than 50% of the visit. As above: Patient with acute presentation of left groin pain that started 5 days ago. Increasing in severity over the last few days. CAT scan reviewed with radiology. There does appear to be some pulling on the sigmoid colon towards the suspected hernia in the left groin. There is some induration in that region. Patient does feel somewhat better today. On examination there is mild fullness at the internal inguinal ring with tenderness there. An obvious incarcerated or reducible hernia is not palpable. The patient's fatty deposition in that area does limit the exam somewhat. Options reviewed with the patient and his . Will proceed with laparoscopic da Bean assisted repair left inguinal hernia with mesh, possible open, possible bilateral. We discussed that operative findings could change our course of action if other etiology for pain is identified. Risks of bleeding, infection, recurrence, bladder and bowel injury, numbness, nerve injury, conversion to an open procedure were discussed with the patient. The patient understands and wishes to proceed. Past Medical History Past Medical History: GERD/Reflux, Hypertension, Skin Disorder, Sleep Apnea/CPAP/BIPAP Additional Past Medical History / Comment(s): migraines; psoriasis; cpap set at 11. had COVID 2019-continues to experience some shortness of breath and loss of taste History of Any Multi-Drug Resistant Organisms: None Reported Past Surgical History: Hernia Repair, Orthopedic Surgery Additional Past Surgical History / Comment(s): surgery for abdominal cyst; sinus surgery; rt shoulder surgery; achilles tendon-left; right foot spur removed; right eye vitreous detachment; right eye cataract; left eye glaucoma; precancer removed from face; excisional biopsy of left breast lipoma 03/03/20; excisional biopsy of two right breast lipomas 02/23/20; Past Anesthesia/Blood Transfusion Reactions: No Reported Reaction Past Psychological History: No Psychological Hx Reported Smoking Status: Former smoker Past Alcohol Use History: Rare Additional Past Alcohol Use History / Comment(s): quit smoking - not sure when Past Drug Use History: None Reported - Past Family History Mother Family Medical History: No Reported History Additional Family Medical History / Comment(s): materal grandmother breast cancer Father Family Medical History: Cancer Additional Family Medical History / Comment(s): bladder cancer; Medications and Allergies Home Medications Medication Instructions Recorded Confirmed Type Cetirizine HCl [Zyrtec] 10 mg PO HS 11/23/16 08/02/21 History Omeprazole [PriLOSEC] 20 mg PO DAILY 11/23/16 08/02/21 History Docusate [Colace] 200 mg PO HS 08/02/21 08/02/21 History Finasteride [Proscar] 5 mg PO DAILY 08/02/21 08/02/21 History Latanoprost/Pf [Latanoprost 0.005% 1 drop LEFT EYE HS 08/02/21 08/02/21 History Eye Drop] Multivitamin/Iron/Folic Acid 1 tab PO DAILY 08/02/21 08/02/21 History [Centrum Complete Multivit Tab] amLODIPine [Norvasc] 5 mg PO HS 08/02/21 08/02/21 History lisinopriL 40 mg PO DAILY 08/02/21 08/02/21 History Allergies Allergy/AdvReac Type Severity Reaction Status Date / Time Penicillins Allergy Severe Anaphylaxis Verified 08/02/21 22:50 Surgical - Exam Vital Signs Temp Pulse Resp BP Pulse Ox 97.9 F 69 18 174/82 98 08/02/21 17:45 08/02/21 17:45 08/02/21 17:45 08/02/21 17:45 08/02/21 17:45 Results - Labs 08/03/21 07:14 08/03/21 07:14 Abnormal Lab Results - Last 24 Hours (Table) 08/02/21 08/02/21 08/03/21 Range/Units 20:11 23:10 07:14 RBC 3.81 L 3.79 L (4.30-5.90) m/uL Hgb 11.0 L 10.9 L (13.0-17.5) gm/dL Hct 34.6 L 34.5 L (39.0-53.0) % Urine Protein Trace H (Negative) Urine Ketones 1+ H (Negative) Diabetes panel 08/02/21 08/03/21 Range/Units 23:10 07:14 Sodium 139 140 (137-145) mmol/L Potassium 3.8 4.0 (3.5-5.1) mmol/L Chloride 106 106 (98-107) mmol/L Carbon Dioxide 27 27 (22-30) mmol/L BUN 13 12 (9-20) mg/dL Creatinine 0.92 0.91 (0.66-1.25) mg/dL Glucose 87 91 (74-99) mg/dL Calcium 9.1 8.7 (8.4-10.2) mg/dL AST 25 25 (17-59) U/L ALT 20 20 (4-49) U/L Alkaline Phosphatase 72 64 (38-126) U/L Total Protein 6.9 6.6 (6.3-8.2) g/dL Albumin 4.0 3.8 (3.5-5.0) g/dL Calcium panel 08/02/21 08/03/21 Range/Units 23:10 07:14 Calcium 9.1 8.7 (8.4-10.2) mg/dL Phosphorus 3.4 (2.5-4.5) mg/dL Albumin 4.0 3.8 (3.5-5.0) g/dL Pituitary panel 08/02/21 08/03/21 Range/Units 23:10 07:14 Sodium 139 140 (137-145) mmol/L Potassium 3.8 4.0 (3.5-5.1) mmol/L Chloride 106 106 (98-107) mmol/L Carbon Dioxide 27 27 (22-30) mmol/L BUN 13 12 (9-20) mg/dL Creatinine 0.92 0.91 (0.66-1.25) mg/dL Glucose 87 91 (74-99) mg/dL Calcium 9.1 8.7 (8.4-10.2) mg/dL Adrenal panel 08/02/21 08/03/21 Range/Units 23:10 07:14 Sodium 139 140 (137-145) mmol/L Potassium 3.8 4.0 (3.5-5.1) mmol/L Chloride 106 106 (98-107) mmol/L Carbon Dioxide 27 27 (22-30) mmol/L BUN 13 12 (9-20) mg/dL Creatinine 0.92 0.91 (0.66-1.25) mg/dL Glucose 87 91 (74-99) mg/dL Calcium 9.1 8.7 (8.4-10.2) mg/dL Total Bilirubin 0.4 0.4 (0.2-1.3) mg/dL AST 25 25 (17-59) U/L ALT 20 20 (4-49) U/L Alkaline Phosphatase 72 64 (38-126) U/L Total Protein 6.9 6.6 (6.3-8.2) g/dL Albumin 4.0 3.8 (3.5-5.0) g/dL
[2021-08-03] MEDS: LACTATED RINGERS 1,000 ML IV SCH (20:32)
[2021-08-04] MEDS: lisinopriL 20 MG TAB PO SCH (08:55)
[2021-08-04] MEDS: SODIUM CHLORIDE 0.9% 1,000 ML IV SCH ×2 (08:55→20:37)
[2021-08-04] MEDS: PANTOPRAZOLE 40 MG/10 ML VIAL IV SCH (08:55)
[2021-08-04] MEDS ORDERED: LACTATED RINGERS 1,000 ML IV ONE (11:16)
[2021-08-04] MEDS ORDERED: HEPARIN SODIUM,PORCINE/PF 5,000 UNIT/0.5 ML SYRINGE SQ ONE (12:42)
[2021-08-04] MEDS ORDERED: HEPARIN SODIUM,PORCINE 5,000 UNIT/ML 1 ML VIAL SQ ONE (12:44)
[2021-08-04] MEDS ORDERED: TAMSULOSIN 0.4 MG CAP.ER.24H PO ONE (12:48)
[2021-08-04] MEDS ORDERED: LEVOFLOXACIN 500MG-D5W PMX 500 MG in DEXTROSE/WATER 1 100ML.BAG IVPB STA (12:53)
[2021-08-04] MEDS ORDERED: MIDAZOLAM 2 MG/2 ML VIAL ONE (13:11)
[2021-08-04] MEDS ORDERED: NEOSTIGMINE 1 MG/ML 10 ML VIAL ONE (13:11)
[2021-08-04] MEDS ORDERED: GLYCOPYRROLATE 0.2 MG/ML 2 ML VIAL ONE (13:11)
[2021-08-04] MEDS ORDERED: PROPOFOL 10 MG/ML 20 ML VIAL IV ONE (13:11)
[2021-08-04] MEDS ORDERED: PHENYLEPHRINE-0.9% NACL SYG 1,000 MCG/10 ML SYRINGE ONE (13:11)
[2021-08-04] MEDS ORDERED: SUCCINYLCHOLINE CHLORIDE 100 MG/5 ML SYR IV ONE (13:11)
[2021-08-04] MEDS ORDERED: fentaNYL (PF) 50 MCG/ML 2 ML AMP ONE (13:11)
[2021-08-04] MEDS ORDERED: LIDOCAINE 2% INJ 20 MG/ML (2 ML VIAL) ONE (13:11)
[2021-08-04] MEDS ORDERED: ROCURONIUM 10 MG/ML (5 ML VIAL) IV ONE (13:11)
[2021-08-04] MEDS ORDERED: BUPIVACAIN-EPI 0.25%-1:200,000 30 ML VIAL SQ ONE (13:37)
[2021-08-04] MEDS ORDERED: TAMSULOSIN 0.4 MG CAP.ER.24H PO STA (15:23)
[2021-08-04] MEDS ORDERED: HYDROmorphone 0.5 MG/0.5 ML SYRINGE IVP ONE ×2 (15:28→15:37)
--- NOTE | 2021-08-04 15:29 | P.OP ---
Date of Procedure: 08/04/21 Procedure(s) Performed: PREOPERATIVE DIAGNOSIS: Left inguinal hernia POSTOPERATIVE DIAGNOSIS: Left indirect inguinal hernia PROCEDURE: Laparoscopic da Bean assisted repair left indirect inguinal hernia with mesh SURGEON: Dr. Basilio ANESTHESIA: General OPERATIVE PROCEDURE DETAILS: Patient was placed in the operating table in the supine position. The patient was placed under general anesthesia. The abdomen was prepped and draped in usual sterile fashion. A small curvilinear supraumbilical incision was made. The fascia was retracted anteriorly with [place] forceps. The Veress needle was inserted. The saline drop test was normal. Insufflation took place to 15 mmHg. An 8 mm trocar was placed into the peritoneal cavity. 2 additional 8 mm trochars were placed in the right upper quadrant and left upper quadrant under visualization. The robotic arms were then brought in and docked into place. The fenestrated bipolar was used in the left arm and the laparoscopic shaggy was utilized in the right arm. A 30 8 mm scope was used in the up position. The peritoneal cavity was inspected. The patient had evidence of previous scarring in the right groin from prior hernia repair. There was no evidence of recurrent hernia. On the left-hand side there was a moderate sized narrow neck indirect inguinal hernia containing a portion of pericolonic fat. The left-sided peritoneum was incised in a horizontal fashion cephalad to the internal inguinal ring. Following that careful dissection of the preperitoneal space took place. This took place using both electrocautery, sharp dissection but primarily blunt dissection. Visualization of the pubic tubercle and Gregg's ligament took place medially. Full dissection took place laterally as well. The hernia sac was fully dissected. The patient had a lipoma the cord that was excised. The patient's hernia sac was quite long and the very last centimeter or so was left in place and the hernia sac was ligated. Once we had adequate space the extra-large Bard 3-D mid mesh was advanced into the preperitoneal space and flattened out appropriately to cover all potential hernia sites. No sutures were used. The peritoneal defect was then closed using a absorbable 2-0 VLok suture. The hernia sac was incorporated into the peritoneal closure to help prevent future recurrence. A portion of the elongated excess hernia sac was excised and removed. The pneumoperitoneum was then evacuated. The skin of all 3 sites was closed using a 4-0 Monocryl stitch. Skin glue was then applied. TYPE OF MESH USED: Bard extra-large 3-D mid LOCATION OF MESH: Preperitoneal FIXATION: None PREOPERATIVE DISCUSSION ON SMOKING CESSASTION: Yes PREOPERATIVE DISCUSSION ON MORBID OBESITY: Yes PREOPERATIVE DISCUSSION ON APPROPRIATE USE OF NARCOTIC USE: Yes PREOPERATIVE EDUCATION: Multi Modal, Smoking Cessation and Weight Loss with BMI over 35. DISPOSITION: Stable to recovery room
[2021-08-04] MEDS: IBUPROFEN 600 MG TAB PO SCH (18:10)
[2021-08-04] MEDS: ACETAMINOPHEN TAB 325 MG TAB PO SCH (18:25)
[2021-08-04] MEDS: LACTATED RINGERS 1,000 ML IV SCH (20:20)
[2021-08-04] MEDS: amLODIPine 5 MG TAB PO SCH (20:37)
[2021-08-04] MEDS: MORPHINE SULFATE 4 MG/ML SYRINGE IV PRN (20:41)
[2021-08-05] MEDS: ACETAMINOPHEN TAB 325 MG TAB PO SCH ×2 (00:05→05:39)
[2021-08-05] MEDS: IBUPROFEN 600 MG TAB PO SCH ×2 (00:06→05:40)
[2021-08-05 07:57] VITALS: BP 144/80; PULSE 76; RESP 16; TEMP 97.9
[2021-08-05] MEDS: lisinopriL 20 MG TAB PO SCH (08:52)
[2021-08-05] MEDS: PANTOPRAZOLE 40 MG/10 ML VIAL IV SCH (08:52)
--- NOTE | 2021-08-05 10:48 | P.PN ---
Progress Note - Text Progress Note Date: 08/05/21 Patient feels well. He wants to be discharged. He has minimal Hi pain. Status post repair of incarcerated left we'll hernia. Patient be discharged and follow Dr. Basilio next week.
== END 2021-08-05 11:38 | disposition home or self-care (01) ==
LOC: EC 16:00 → 6NMEDSUR 23:32
PROVIDERS: ADMIT Surgery; ATTEND Surgery
DX: K40.90 Unilateral inguinal hernia, without obstruction or gangrene, not specified as recurrent (principal); K21.9 Gastro-esophageal reflux disease without esophagitis; I10 Essential (primary) hypertension; G47.33 Obstructive sleep apnea (adult) (pediatric); G43.909 Migraine, unspecified, not intractable, without status migrainosus; L40.9 Psoriasis, unspecified; Z86.16 Personal history of COVID-19; Z98.890 Other specified postprocedural states; Z98.41 Cataract extraction status, right eye; Z87.891 Personal history of nicotine dependence; Z80.3 Family history of malignant neoplasm of breast; Z80.52 Family history of malignant neoplasm of bladder; Z79.899 Other long term (current) drug therapy; Z88.0 Allergy status to penicillin
CPT/HCPCS: 49650; S2900; 74176; 76870; 80053; 81003; 82150; 83605; 83690; 83735; 84100; 85025; 85610; 85730; 88302; 93975; 94660; 96361; 96374; 96375; 96376; 99285

== ENCOUNTER → 2022-06-08 | Outpatient (CLI) | payer BC | END | disposition home or self-care (01) | LOC: LABWHC1 14:54 | PROVIDERS: ATTEND Urology | DX: R97.20 Elevated prostate specific antigen [PSA] (principal) | CPT/HCPCS: 36415; 84153 ==

== ENCOUNTER → 2023-05-03 | Outpatient (CLI) | payer BC ==
[2023-05-03 17:31] LABS: ALT 15 U/L (10-49); AST 16 U/L (14-35); Albumin 4.1 g/dL (3.8-4.9); Albumin/Globulin Ratio 1.58 Ratio (1.60-3.17); Alkaline Phosphatase 73 U/L (41-126); Blood Urea Nitrogen 14.8 mg/dL (9.0-27.0); Calcium 9.3 mg/dL (8.7-10.3); Carbon Dioxide 26.2 mmol/L (21.6-31.8); Chloride 106 mmol/L (96-109); Chol/HDL Ratio 3.83 Ratio; Globulin 2.6 g/dL (1.6-3.3); Glucose 126 mg/dL (70-110); LDL Cholesterol,Calculated 82.2 mg/dL (0.0-131.0); Sodium 141 mmol/L (135-145); Total Bilirubin 0.2 mg/dL (0.3-1.2); Total Protein 6.7 g/dL (6.2-8.2); VLDL Calculation 15.32 mg/dL (5.00-40.00)
== END | disposition home or self-care (01) ==
LOC: LABWHC1 09:48
PROVIDERS: ATTEND Internal Medicine Interventional Cardiology
DX: I70.0 Atherosclerosis of aorta (principal)
CPT/HCPCS: 36415; 80053; 80061

== ENCOUNTER 2024-04-01 14:26 | Inpatient (IN) | payer MEDICARE, OTHER ==
--- NOTE | 2024-04-01 14:44 | ED ---
GI Bleed HPI - General Source: patient, family, RN notes reviewed Mode of arrival: ambulatory <Nhi Shepard - Last Filed: 04/01/24 14:42> <Fay Delgado - Last Filed: 04/04/24 20:54> - General Chief complaint: GI Bleed Stated complaint: severe rectal bleeding Time Seen by Provider: 04/01/24 14:39 - History of Present Illness Initial comments: Quick note63 male presenting to the emergency department with GI bleed. over the past 4 days he has been experiencing bright red blood after bowel movements. states he has minimal abdominal pain, denies passage of clots. over the past few days he has been experiencing dizziness and lightheadedness and his is concerned that he looks pale. denies blood thinner use. States he was taking 600 mg ibuprofen 2 times a day for roughly a week after recent diagnosis of COVID. (Nhi Shepard) 63-year-old male presents emergency department reporting bright red blood per rectum. States that symptoms have been going on for the past 4 days. States he will have 1 bowel movement in the morning which will fill the entire toilet bowl with red blood. Admits to mild right lower quadrant abdominal pain. No rectal pain. Does have a history of hemorrhoids. Patient has been slightly lightheaded over the past few days. He does not take any blood thinners. He was taking ibuprofen and steroids as he was recently diagnosed with COVID. He denies vomiting any blood. No history of liver disease. Patient denies any black stools. No history of peptic ulcers. Last colonoscopy was 1.5 years ago. No other alleviating, precipitating or modifying factors (Fay Delgado) - Related Data Home Medications Medication Instructions Recorded Confirmed Cetirizine HCl [Zyrtec] 10 mg PO HS 11/23/16 04/01/24 Finasteride [Proscar] 5 mg PO DAILY 08/02/21 04/01/24 Latanoprost/Pf [Latanoprost 0.005% 1 drop LEFT EYE HS 08/02/21 04/01/24 Eye Drop] amLODIPine [Norvasc] 5 mg PO HS 08/02/21 04/01/24 lisinopriL 40 mg PO DAILY 08/02/21 04/01/24 Aspirin/Acetaminophen/Caffeine 2 tab PO DAILY PRN 04/01/24 04/01/24 [Excedrin Migraine Caplet] Budesonide 1 mg INHALATION RT-BID 04/01/24 04/01/24 [employer] Multivitamin 1 tab PO DAILY 04/01/24 04/01/24 Iron(Unknown Dose) 1 tab PO TUSA 04/01/24 04/01/24 Omeprazole 40 mg PO DAILY 04/01/24 04/01/24 Vit C/E/Zn/Coppr/Lutein/Zeaxan 2 cap PO DAILY 04/01/24 04/01/24 [Preservision Areds 2 Softgel] Previous Rx's Medication Instructions Recorded Hydrocortisone Suppository 25 mg RECTAL BID #60 suppositor 04/03/24 [Anusol-Hc] Allergies Allergy/AdvReac Type Severity Reaction Status Date / Time Penicillins Allergy Severe Anaphylaxis Verified 04/01/24 17:23 Review of Systems ROS Other: All systems not noted in ROS Statement are negative. <Nhi Shepard - Last Filed: 04/01/24 14:42> ROS Other: All systems not noted in ROS Statement are negative. <Fay Delgado - Last Filed: 04/04/24 20:54> ROS Statement: Those systems with pertinent positive or pertinent negative responses have been documented in the HPI. Past Medical History Past Medical History: GERD/Reflux, Hypertension, Skin Disorder, Sleep Apnea/C PAP/BIPAP Additional Past Medical History / Comment(s): migraines; psoriasis; cpap set at 11. had COVID 2019-continues to experience some shortness of breath and loss of taste History of Any Multi-Drug Resistant Organisms: None Reported Past Surgical History: Hernia Repair, Orthopedic Surgery Additional Past Surgical History / Comment(s): surgery for abdominal cyst; sinus surgery; rt shoulder surgery; achilles tendon-left; right foot spur removed; right eye vitreous detachment; right eye cataract; left eye glaucoma; precancer removed from face; excisional biopsy of left breast lipoma 03/03/20; excisional biopsy of two right breast lipomas 02/23/20; Past Anesthesia/Blood Transfusion Reactions: No Reported Reaction Past Psychological History: No Psychological Hx Reported Smoking Status: Former smoker Past Alcohol Use History: Rare Past Drug Use History: None Reported - Past Family History Mother Family Medical History: No Reported History Additional Family Medical History / Comment(s): materal grandmother breast cancer Father Family Medical History: Cancer Additional Family Medical History / Comment(s): bladder cancer; <Nhi Shepard - Last Filed: 04/01/24 14:42> General Exam <Nhi Shepard - Last Filed: 04/01/24 14:42> General appearance: alert, in no apparent distress Head exam: Present: atraumatic, normocephalic, normal inspection Eye exam: Present: normal appearance, PERRL, EOMI. Absent: scleral icterus, conjunctival injection, periorbital swelling ENT exam: Present: normal exam, mucous membranes moist Neck exam: Present: normal inspection. Absent: tenderness, meningismus, lymphadenopathy Respiratory exam: Present: normal lung sounds bilaterally. Absent: respiratory distress, wheezes, rales, rhonchi, stridor Cardiovascular Exam: Present: regular rate, normal rhythm, normal heart sounds. Absent: systolic murmur, diastolic murmur, rubs, gallop, clicks GI/Abdominal exam: Present: tenderness, normal bowel sounds. Absent: distended, guarding, rebound, rigid Rectal exam: Present: bloody stool, hemorrhoids Extremities exam: Present: normal inspection, full ROM, normal capillary refill. Absent: tenderness, pedal edema, joint swelling, calf tenderness Back exam: Present: normal inspection Neurological exam: Present: alert, oriented X3, CN II-XII intact Psychiatric exam: Present: normal affect, normal mood Skin exam: Present: warm, dry, intact, normal color. Absent: rash <Fay Delgado - Last Filed: 04/04/24 20:54> - General Exam Comments Initial Comments: Visual Physical Exam Vital signs reviewed General: Well-appearing, nontoxic, no acute distress. Head: Normocephalic, atraumatic Eyes: PERRLA, EOMI ENT: Airway patent Chest: Nonlabored breathing Skin: No visual rash, normal skin tone Neuro: Alert and oriented 3 Musculoskeletal: No gross abnormalities (DevynNhi) Course Vital Signs 04/01/24 04/01/24 04/01/24 14:35 17:45 18:00 Temperature 98.4 F 98.2 F 98.0 F Pulse Rate 89 83 81 Respiratory 18 16 16 Rate Blood Pressure 164/81 136/62 151/78 O2 Sat by Pulse 99 Oximetry Fraction of Inspired Oxygen (FIO2) 04/01/24 04/01/24 04/01/24 18:20 21:07 21:21 Temperature 98.0 F 98.3 F Pulse Rate 91 87 Respiratory 18 18 Rate Blood Pressure 175/90 165/79 O2 Sat by Pulse 96 Oximetry Fraction of 21 Inspired Oxygen (FIO2) 04/01/24 04/02/24 04/02/24 22:51 00:06 02:05 Temperature 98.0 F 98.1 F Pulse Rate 80 85 Respiratory 18 12 Rate Blood Pressure 140/61 140/66 O2 Sat by Pulse 96 97 Oximetry Fraction of 21 Inspired Oxygen (FIO2) 04/02/24 04/02/24 04/02/24 02:15 02:35 04:00 Temperature 98.1 F 98.1 F Pulse Rate 76 76 70 Respiratory 15 19 15 Rate Blood Pressure 135/73 130/60 144/67 O2 Sat by Pulse 97 98 97 Oximetry Fraction of Inspired Oxygen (FIO2) 04/02/24 04/02/24 04/02/24 04:37 06:00 07:41 Temperature 98.4 F Pulse Rate 75 76 85 Respiratory 11 L 12 16 Rate Blood Pressure 137/64 142/84 142/84 O2 Sat by Pulse 97 98 96 Oximetry Fraction of Inspired Oxygen (FIO2) 04/02/24 04/02/24 04/02/24 08:07 08:16 09:00 Temperature Pulse Rate 75 81 75 Respiratory 20 Rate Blood Pressure 130/60 O2 Sat by Pulse 98 Oximetry Fraction of Inspired Oxygen (FIO2) 04/02/24 04/02/24 04/02/24 10:00 11:53 12:40 Temperature Pulse Rate 75 85 72 Respiratory 20 20 20 Rate Blood Pressure 135/68 132/79 131/67 O2 Sat by Pulse 98 98 99 Oximetry Fraction of Inspired Oxygen (FIO2) Medical Decision Making <Nhi Shepard - Last Filed: 04/01/24 14:42> - Lab Data Result diagrams: 04/03/24 06:40 04/02/24 06:51 <Fay Delgado - Last Filed: 04/04/24 20:54> - Medical Decision Making I completed the quick note portion of this chart signed Nhi Shepard PA-C (Nhi Shepard) Was pt. sent in by a medical professional or institution (GELACIO Lopez, RAIL TRACTOR OPERATOR, urgent care, hospital, or long-term...) When possible be specific @ -No Did you speak to anyone other than the patient for history (EMS, parent, family, police, friend...)? What history was obtained from this source @ -Spoke with daughter for history Did you review nursing and triage notes (agree or disagree)? Why? @ -I reviewed and agree with nursing and triage notes Were old charts reviewed (outside hosp., previous admission, EMS record, old EKG, old radiological studies, urgent care reports/EKG's, long-term records)? Report findings @ -No old charts were reviewed Differential Diagnosis (chest pain, altered mental status, abdominal pain women, abdominal pain men, vaginal bleeding, weakness, fever, dyspnea, syncope, headach e, dizziness, GI bleed, back pain, seizure, CVA, palpatations, mental health, musculoskeletal)? @ -Differential GI Bleed: Esophageal varices, aortoenteric fistula, Ayla-Garces, gastritis, peptic ulcer disease, diverticulosis, inflammatory bowel disease, hemorrhoids, fissure, colitis, malignancy, Meckel's diverticulum, this is not meant to be an all- inclusive list. EKG interpreted by me (3pts min.). @ -Not done X-rays interpreted by me (1pt min.). @ -None done CT interpreted by me (1pt min.). @ -Yes which demonstrates no acute process U/S interpreted by me (1pt. min.). @ -None done What testing was considered but not performed or refused? (CT, X-rays, U/S, labs)? Why? @ -None What meds were considered but not given or refused? Why? @ -None Did you discuss the management of the patient with other professionals (professionals i.e. GELACIO Lopez, RAIL TRACTOR OPERATOR, lab, RT, psych nurse, health and social care teacher, sap business analyst, teacher, first officer, geriatric case manager)? Give summary @ -Spoke with Dr. Basilio - he was willing to consult on patient Was smoking cessation discussed for >3mins.? @ -No Was critical care preformed (if so, how long)? @ -No Were there social determinants of health that impacted care today? How? (Homelessness, low income, unemployed, alcoholism, drug addiction, transportation, low edu. Level, literacy, decrease access to med. care, long term, rehab)? @ -No Was there de-escalation of care discussed even if they declined (Discuss DNR or withdrawal of care, Hospice)? DNR status @ -No What co-morbidities impacted this encounter? (DM, HTN, Smoking, COPD, CAD, Cancer, CVA, ARF, Chemo, Hep., AIDS, mental health diagnosis, sleep apnea, morbid obesity)? @ -None Was patient admitted / discharged? Hospital course, mention meds given and route, prescriptions, significant lab abnormalities, going to OR and other pertinent info. @ -Upon arrival patient seen and evaluated in hallway 20. Thorough history and physical exam was performed. IV access was established. Laboratory studies are conducted. EKG was performed. Rectal exam was performed which demonstrates some bright red blood. Results are discussed with the patient. Did speak with Dr. Basilio - he was agreeable to consulting on the patient. Spoke with Dr. Salvador for the admission Undiagnosed new problem with uncertain prognosis? @ -No Drug Therapy requiring intensive monitoring for toxicity (Heparin, Nitro, Insulin, Cardizem)? @ -No Were any procedures done? @ -No Diagnosis/symptom? @ -acute hematochezia Acute, or Chronic, or Acute on Chronic? @ -Acute Uncomplicated (without systemic symptoms) or Complicated (systemic symptoms)? @ -Complicated Side effects of treatment? @ -No Exacerbation, Progression, or Severe Exacerbation? @ -No Poses a threat to life or bodily function? How? (Chest pain, [place], [place], pneumonia, PE, COPD, DKA, ARF, appy, cholecystitis, CVA, Diverticulitis, Homicidal, Suicidal, threat to staff... and all critical care pts) @ -No (Fay Delgado) - Lab Data Lab Results 04/01/24 04/01/24 04/01/24 Range/Units 15:22 15:22 15:22 WBC 9.0 (3.8-10.6) k/uL RBC 2.32 L (4.30-5.90) m/uL Hgb 6.8 L* (13.0-17.5) gm/dL Hct 21.0 L (39.0-53.0) % MCV 90.5 (80.0-100.0) fL MCH 29.1 (25.0-35.0) pg MCHC 32.2 (31.0-37.0) g/dL RDW 14.3 (11.5-15.5) % Plt Count 372 (150-450) k/uL MPV 7.6 Neutrophils % 65 % Lymphocytes % 23 % Monocytes % 6 % Eosinophils % 3 % Basophils % 1 % Neutrophils # 5.8 (1.3-7.7) k/uL Lymphocytes # 2.1 (1.0-4.8) k/uL Monocytes # 0.6 (0-1.0) k/uL Eosinophils # 0.2 (0-0.7) k/uL Basophils # 0.0 (0-0.2) k/uL Hypochromasia Moderate Poikilocytosis Slight Sodium 135 L (137-145) mmol/L Potassium 4.3 (3.5-5.1) mmol/L Chloride 103 (98-107) mmol/L Carbon Dioxide 26 (22-30) mmol/L Anion Gap 6 mmol/L BUN 13 (9-20) mg/dL Creatinine 0.69 (0.66-1.25) mg/dL Est GFR (CKD-EPI)AfAm >90 (>60 ml/min/1.73 sqM) Est GFR (CKD-EPI)NonAf >90 (>60 ml/min/1.73 sqM) Glucose 139 H (74-99) mg/dL Calcium 8.7 (8.4-10.2) mg/dL Total Bilirubin 0.3 (0.2-1.3) mg/dL AST 21 (17-59) U/L ALT 23 (4-49) U/L Alkaline Phosphatase 64 (38-126) U/L Total Protein 5.8 L (6.3-8.2) g/dL Albumin 3.4 L (3.5-5.0) g/dL Stool Occult Blood (Negative) Blood Type A Positive Blood Type Confirm Blood Type Recheck No Previous Record Bld Type Recheck Status CABO Indicated Antibody Screen NEGATIVE Crossmatch See Detail Spec Expiration Date 04/04/2024 - 232104/01/24 04/01/24 04/02/24 Range/Units 15:35 19:40 00:34 WBC 9.0 (3.8-10.6) k/uL RBC 2.35 L (4.30-5.90) m/uL Hgb 7.1 L (13.0-17.5) gm/dL Hct 21.5 L (39.0-53.0) % MCV 91.7 (80.0-100.0) fL MCH 30.3 (25.0-35.0) pg MCHC 33.0 (31.0-37.0) g/dL RDW 14.5 (11.5-15.5) % Plt Count 329 (150-450) k/uL MPV 7.8 Neutrophils % 68 % Lymphocytes % 19 % Monocytes % 7 % Eosinophils % 2 % Basophils % 0 % Neutrophils # 6.1 (1.3-7.7) k/uL Lymphocytes # 1.7 (1.0-4.8) k/uL Monocytes # 0.6 (0-1.0) k/uL Eosinophils # 0.2 (0-0.7) k/uL Basophils # 0.0 (0-0.2) k/uL Hypochromasia Moderate Poikilocytosis Slight Sodium (137-145) mmol/L Potassium (3.5-5.1) mmol/L Chloride (98-107) mmol/L Carbon Dioxide (22-30) mmol/L Anion Gap mmol/L BUN (9-20) mg/dL Creatinine (0.66-1.25) mg/dL Est GFR (CKD-EPI)AfAm (>60 ml/min/1.73 sqM) Est GFR (CKD-EPI)NonAf (>60 ml/min/1.73 sqM) Glucose (74-99) mg/dL Calcium (8.4-10.2) mg/dL Total Bilirubin (0.2-1.3) mg/dL AST (17-59) U/L ALT (4-49) U/L Alkaline Phosphatase (38-126) U/L Total Protein (6.3-8.2) g/dL Albumin (3.5-5.0) g/dL Stool Occult Blood Positive (Negative) Blood Type Blood Type Confirm A Positive Blood Type Recheck Bld Type Recheck Status Antibody Screen Crossmatch Spec Expiration Date 04/02/24 04/02/24 Range/Units 06:51 06:51 WBC 8.6 (3.8-10.6) k/uL RBC 2.71 L (4.30-5.90) m/uL Hgb 8.0 L (13.0-17.5) gm/dL Hct 24.9 L (39.0-53.0) % MCV 92.0 (80.0-100.0) fL MCH 29.7 (25.0-35.0) pg MCHC 32.3 (31.0-37.0) g/dL RDW 14.3 (11.5-15.5) % Plt Count 335 (150-450) k/uL MPV 7.6 Neutrophils % 67 % Lymphocytes % 20 % Monocytes % 8 % Eosinophils % 3 % Basophils % 0 % Neutrophils # 5.7 (1.3-7.7) k/uL Lymphocytes # 1.7 (1.0-4.8) k/uL Monocytes # 0.7 (0-1.0) k/uL Eosinophils # 0.2 (0-0.7) k/uL Basophils # 0.0 (0-0.2) k/uL Hypochromasia Moderate Poikilocytosis Slight Sodium 138 (137-145) mmol/L Potassium 4.3 (3.5-5.1) mmol/L Chloride 104 (98-107) mmol/L Carbon Dioxide 28 (22-30) mmol/L Anion Gap 6 mmol/L BUN 12 (9-20) mg/dL Creatinine 0.81 (0.66-1.25) mg/dL Est GFR (CKD-EPI)AfAm >90 (>60 ml/min/1.73 sqM) Est GFR (CKD-EPI)NonAf >90 (>60 ml/min/1.73 sqM) Glucose 123 H (74-99) mg/dL Calcium 8.6 (8.4-10.2) mg/dL Total Bilirubin (0.2-1.3) mg/dL AST (17-59) U/L ALT (4-49) U/L Alkaline Phosphatase (38-126) U/L Total Protein (6.3-8.2) g/dL Albumin (3.5-5.0) g/dL Stool Occult Blood (Negative) Blood Type Blood Type Confirm Blood Type Recheck Bld Type Recheck Status Antibody Screen Crossmatch Spec Expiration Date Disposition <Stieler,Nhi - Last Filed: 04/01/24 14:42> Is patient prescribed a controlled substance at d/c from ED?: No Time of Disposition: 20:00 Decision to Admit Reason: Admit from EC Decision Date: 04/01/24 Decision Time: 20:00 <Fay Delgado - Last Filed: 04/04/24 20:54> Clinical Impression: Hematochezia, Anemia Disposition: ADMITTED IP TO THIS HOSP
[2024-04-01 15:42] LABS: Basophils % (A) 1 %; Eosinophils # (A) 0.2 k/uL (0-0.7); Eosinophils % (A) 3 %; Hypochromasia Moderate; Lymphocytes # (A) 2.1 k/uL (1.0-4.8); Lymphocytes % (A) 23 %; MCH 29.1 pg (25.0-35.0); MCHC 32.2 g/dL (31.0-37.0); MCV 90.5 fL (80.0-100.0); Mean Platelet Volume 7.6; Monocytes # (A) 0.6 k/uL (0-1.0); Monocytes % (A) 6 %; Neutrophils # (A) 5.8 k/uL (1.3-7.7); Neutrophils % (A) 65 %; Platelet Count 372 k/uL (150-450); Poikilocytosis Slight; RBC 2.32 m/uL (4.30-5.90); RDW 14.3 % (11.5-15.5)
[2024-04-01 16:03] LABS: ALT 23 U/L (4-49); AST 21 U/L (17-59); African American GFR (CKD) >90 (>60 ml/min/1.73 sqM); Albumin 3.4 g/dL (3.5-5.0); Alkaline Phosphatase 64 U/L (38-126); Anion Gap 6 mmol/L; Blood Urea Nitrogen 13 mg/dL (9-20); Calcium 8.7 mg/dL (8.4-10.2); Carbon Dioxide 26 mmol/L (22-30); Chloride 103 mmol/L (98-107); Glucose 139 mg/dL (74-99); HGB 6.8 gm/dL (13.0-17.5); Non-African American GFR(CKD) >90 (>60 ml/min/1.73 sqM); Potassium 4.3 mmol/L (3.5-5.1); Sodium 135 mmol/L (137-145); Total Bilirubin 0.3 mg/dL (0.2-1.3); Total Protein 5.8 g/dL (6.3-8.2)
--- NOTE | 2024-04-01 19:18 | CT ---
EXAMINATION TYPE: CT angio abdomen pelvis DATE OF EXAM: 04/01/2024 6:17 PM COMPARISON: 08/02/2021 CLINICAL INDICATION: Male, 63 years old with history of abd pain, gi bleed, Bright red rectal bleedin g x4days. TECHNIQUE: Axial images were obtained from above the diaphragm to the pubic rami in the axial plane a t 5 mm thick sections. Reconstructed images are reviewed on the computer in the coronal plane. 2-D minute imaging performed in the coronal and sagittal plane are reviewed. CONTRAST: 100 ml mL of Isovue 370. Study performed without Oral Contrast DLP: 4453.6 mGycm, Automated exposure control for dose reduction was used. FINDINGS: Limited CT sections are obtained the lung bases. There is a calcified granuloma in the posterior lef t lung base.. CT ABDOMEN: Liver: There may be a couple small cysts within the liver. Spleen: Normal Pancreas: Normal Adrenal glands: The adrenal glands are normal. Gallbladder: Normal Kidneys: Multiple large cysts are present through the bilateral kidneys. Correlate for polycystic kid colin disease.. No hydronephrosis is present. No cysts are present. No renal stones are identified. Aorta: Vascular calcification is within the aorta. No aneurysm is evident. Celiac axis and superior mesenteric artery origins are normal. Renal artery origins appear normal. Th e inferior vena cava origin is normal. Common iliac arteries internal and external iliac arteries are patent. Common femoral arteries are patent. No dissections are evident. Inferior vena cava: Normal. CT PELVIS: Loops of bowel within the abdomen and pelvis are normal. This study is without oral contrast limi ting bowel Evaluation. No suspicious contrast collection to suggest active GI bleeding identified. Appendix: Normal as visualized. Urinary bladder: Normal. Genitourinary structures: Prostate is prominent. Osseous structures: No suspicious lytic or sclerotic lesions. IMPRESSION: 1. No suspicious aneurysm or dissection abdominal aorta. 2. No suspicious contrast collection to suggest active extravasation 3. Polycystic kidneys. [facility], Workstation: [id number], 04/01/2024 7:16 PM
[2024-04-01] MEDS ORDERED: NALOXONE 0.4 MG/ML 1 ML VIAL IV PRN (20:00)
[2024-04-01] MEDS: LORATADINE 10 MG TAB PO SCH (21:14)
[2024-04-01] MEDS: LATANOPROST 0.005% OPHTH DROPS 2.5 ML BTL LEFT EYE SCH (21:14)
[2024-04-01] MEDS: amLODIPine 5 MG TAB PO SCH (21:15)
[2024-04-02 01:05] LABS: Basophils % (A) 0 %; Eosinophils # (A) 0.2 k/uL (0-0.7); Eosinophils % (A) 2 %; HCT 21.5 % (39.0-53.0); HGB 7.1 gm/dL (13.0-17.5); Hypochromasia Moderate; Lymphocytes # (A) 1.7 k/uL (1.0-4.8); Lymphocytes % (A) 19 %; MCH 30.3 pg (25.0-35.0); MCV 91.7 fL (80.0-100.0); Mean Platelet Volume 7.8; Monocytes # (A) 0.6 k/uL (0-1.0); Monocytes % (A) 7 %; Neutrophils # (A) 6.1 k/uL (1.3-7.7); Neutrophils % (A) 68 %; Platelet Count 329 k/uL (150-450); Poikilocytosis Slight; RBC 2.35 m/uL (4.30-5.90); RDW 14.5 % (11.5-15.5)
[2024-04-02] MEDS: lisinopriL 20 MG TAB PO SCH (07:38)
[2024-04-02] MEDS: MULTIVITAMINS, THERA 1 EACH TAB PO SCH (07:38)
[2024-04-02] MEDS: PANTOPRAZOLE 40 MG TABLET PO SCH (07:38)
[2024-04-02] MEDS: FINASTERIDE 5 MG TAB PO SCH (07:38)
[2024-04-02 07:41] LABS: Basophils % (A) 0 %; Eosinophils # (A) 0.2 k/uL (0-0.7); Eosinophils % (A) 3 %; HCT 24.9 % (39.0-53.0); Hypochromasia Moderate; Lymphocytes # (A) 1.7 k/uL (1.0-4.8); Lymphocytes % (A) 20 %; MCH 29.7 pg (25.0-35.0); MCHC 32.3 g/dL (31.0-37.0); Mean Platelet Volume 7.6; Monocytes # (A) 0.7 k/uL (0-1.0); Monocytes % (A) 8 %; Neutrophils # (A) 5.7 k/uL (1.3-7.7); Neutrophils % (A) 67 %; Platelet Count 335 k/uL (150-450); Poikilocytosis Slight; RBC 2.71 m/uL (4.30-5.90); RDW 14.3 % (11.5-15.5); WBC 8.6 k/uL (3.8-10.6)
[2024-04-02 07:56] LABS: African American GFR (CKD) >90 (>60 ml/min/1.73 sqM); Anion Gap 6 mmol/L; Blood Urea Nitrogen 12 mg/dL (9-20); Calcium 8.6 mg/dL (8.4-10.2); Carbon Dioxide 28 mmol/L (22-30); Chloride 104 mmol/L (98-107); Glucose 123 mg/dL (74-99); Non-African American GFR(CKD) >90 (>60 ml/min/1.73 sqM); Potassium 4.3 mmol/L (3.5-5.1); Sodium 138 mmol/L (137-145)
[2024-04-02] MEDS: BUDESONIDE 1 MG/2 ML NEBU INHALATION SCH (08:03)
--- NOTE | 2024-04-02 11:10 | P.GSCN ---
History of Present Illness Consult date: 04/02/24 History of present illness: CHIEF COMPLAINT: GI bleed HISTORY OF PRESENT ILLNESS: This is a 63-year-old male who presented to the hospital with complaints of bright red blood per rectum daily with bowel movements for the last 5 days. He does have a known history of hemorrhoids. He does complain of some gas pains. He denies any nausea or vomiting. He had been taking ibuprofen 600 mg twice a day and prednisone for the past week due to COVID infection. Patient reports his last colonoscopy was a year ago and had reported hemorrhoids. Is never had a EGD. He had a hemoglobin of 6.8 on admission did receive 2 units of blood and follow-up hemoglobin is 8.0. Patient denies being on any blood thinners. PAST MEDICAL HISTORY: See below PAST SURGICAL HISTORY: See below MEDICATIONS: See below ALLERGIES: See below SOCIAL HISTORY: No illicit drug use. REVIEW OF SYSTEMS: CONSTITUTIONAL: Denies fever or chills. HEENT: Denies blurred vision, vision changes, or eye pain. Denies hemoptysis CARDIOVASCULAR: Denies chest pain or pressure. RESPIRATORY: No shortness of breath. GASTROINTESTINAL: See HPI for pertinent findings HEMATOLOGIC: Denies bleeding disorders. GENITOURINARY: Denies any blood in urine or increased urinary frequency. SKIN: Denies pruitis. Denies rash. PHYSICAL EXAM: VITAL SIGNS: Reviewed GENERAL: Well-developed in no acute distress. HEENT: No sclera icterus. Extraocular movements grossly intact. Moist buccal mucosa. Head is atraumatic, normocephalic. No nasal drainage. ABDOMEN: Soft. Nondistended. Nontender NEUROLOGIC: Alert and oriented. Cranial nerves II through XII grossly intact. LABORATORY DATA: WBCs 8.6 Hgb 6.8 up to 8.0 platelets 335 Sodium 138 potassium is 4.3 creatinine 0.81 Stool for occult blood positive IMAGING: Abdomen pelvis CTA reports no suspicious aneurysm or dissection abdominal aorta. No suspicious contrast collection to suggest active extravasation. Polycystic kidneys. ASSESSMENT: 1. Acute GI bleed with bright red blood per rectum 2. Acute blood loss anemia 3. History of hemorrhoids 4. NSAID use PLAN: -Patient scheduled for flexible sigmoidoscopy today with Dr. Basilio -Rosa Elena enemas x 2 -Keep patient n.p.o. -Continue to monitor hemoglobin -Continue to monitor for any signs or symptoms of bleeding Physician Restaurant Area Director note has been reviewed by physician. Signing provider agrees with the documented findings, assessment, and plan of care. Past Medical History Past Medical History: GERD/Reflux, Hypertension, Skin Disorder, Sleep Apnea/CPAP/BIPAP Additional Past Medical History / Comment(s): migraines; psoriasis; cpap set at 11. had COVID thanks2019-continues to experience some shortness of breath and loss of taste History of Any Multi-Drug Resistant Organisms: None Reported Past Surgical History: Hernia Repair, Orthopedic Surgery Additional Past Surgical History / Comment(s): surgery for abdominal cyst; sinus surgery; rt shoulder surgery; achilles tendon-left; right foot spur removed; right eye vitreous detachment; right eye cataract; left eye glaucoma; precancer removed from face; excisional biopsy of left breast lipoma 03/03/20; excisional biopsy of two right breast lipomas 02/23/20; Past Anesthesia/Blood Transfusion Reactions: No Reported Reaction Past Psychological History: No Psychological Hx Reported Smoking Status: Former smoker Past Alcohol Use History: Rare Past Drug Use History: None Reported - Past Family History Mother Family Medical History: No Reported History Additional Family Medical History / Comment(s): materal grandmother breast cancer Father Family Medical History: Cancer Additional Family Medical History / Comment(s): bladder cancer; Medications and Allergies Home Medications Medication Instructions Recorded Confirmed Type Cetirizine HCl [Zyrtec] 10 mg PO HS 11/23/16 04/01/24 History Docusate [Colace] 200 mg PO HS 08/02/21 04/01/24 History Finasteride [Proscar] 5 mg PO DAILY 08/02/21 04/01/24 History Latanoprost/Pf [Latanoprost 0.005% 1 drop LEFT EYE HS 08/02/21 04/01/24 History Eye Drop] amLODIPine [Norvasc] 5 mg PO HS 08/02/21 04/01/24 History lisinopriL 40 mg PO DAILY 08/02/21 04/01/24 History Aspirin/Acetaminophen/Caffeine 2 tab PO DAILY PRN 04/01/24 04/01/24 History [Excedrin Migraine Caplet] Budesonide 1 mg INHALATION RT-BID 04/01/24 04/01/24 History [employer] Multivitamin 1 tab PO DAILY 04/01/24 04/01/24 History Iron(Unknown Dose) 1 tab PO TUSA 04/01/24 04/01/24 History Omeprazole 40 mg PO DAILY 04/01/24 04/01/24 History Vit C/E/Zn/Coppr/Lutein/Zeaxan 2 cap PO DAILY 04/01/24 04/01/24 History [Preservision Areds 2 Softgel] Allergies Allergy/AdvReac Type Severity Reaction Status Date / Time Penicillins Allergy Severe Anaphylaxis Verified 04/01/24 17:23 Surgical - Exam Vital Signs Temp Pulse Resp BP Pulse Ox 98.4 F 89 18 164/81 99 04/01/24 14:35 04/01/24 14:35 04/01/24 14:35 04/01/24 14:35 04/01/24 14:35 Results - Labs 04/02/24 06:51 04/02/24 06:51 Abnormal Lab Results - Last 24 Hours (Table) 04/01/24 04/01/24 04/01/24 Range/Units 15:22 15:22 15:22 RBC 2.32 L (4.30-5.90) m/uL Hgb 6.8 L* (13.0-17.5) gm/dL Hct 21.0 L (39.0-53.0) % Sodium 135 L (137-145) mmol/L Glucose 139 H (74-99) mg/dL Total Protein 5.8 L (6.3-8.2) g/dL Albumin 3.4 L (3.5-5.0) g/dL Crossmatch See Detail 04/02/24 04/02/24 04/02/24 Range/Units 00:34 06:51 06:51 RBC 2.35 L 2.71 L (4.30-5.90) m/uL Hgb 7.1 L 8.0 L (13.0-17.5) gm/dL Hct 21.5 L 24.9 L (39.0-53.0) % Sodium (137-145) mmol/L Glucose 123 H (74-99) mg/dL Total Protein (6.3-8.2) g/dL Albumin (3.5-5.0) g/dL Crossmatch Diabetes panel 04/01/24 04/02/24 Range/Units 15:22 06:51 Sodium 135 L 138 (137-145) mmol/L Potassium 4.3 4.3 (3.5-5.1) mmol/L Chloride 103 104 (98-107) mmol/L Carbon Dioxide 26 28 (22-30) mmol/L BUN 13 12 (9-20) mg/dL Creatinine 0.69 0.81 (0.66-1.25) mg/dL Glucose 139 H 123 H (74-99) mg/dL Calcium 8.7 8.6 (8.4-10.2) mg/dL AST 21 (17-59) U/L ALT 23 (4-49) U/L Alkaline Phosphatase 64 (38-126) U/L Total Protein 5.8 L (6.3-8.2) g/dL Albumin 3.4 L (3.5-5.0) g/dL Calcium panel 04/01/24 04/02/24 Range/Units 15:22 06:51 Calcium 8.7 8.6 (8.4-10.2) mg/dL Albumin 3.4 L (3.5-5.0) g/dL Pituitary panel 04/01/24 04/02/24 Range/Units 15:22 06:51 Sodium 135 L 138 (137-145) mmol/L Potassium 4.3 4.3 (3.5-5.1) mmol/L Chloride 103 104 (98-107) mmol/L Carbon Dioxide 26 28 (22-30) mmol/L BUN 13 12 (9-20) mg/dL Creatinine 0.69 0.81 (0.66-1.25) mg/dL Glucose 139 H 123 H (74-99) mg/dL Calcium 8.7 8.6 (8.4-10.2) mg/dL Adrenal panel 04/01/24 04/02/24 Range/Units 15:22 06:51 Sodium 135 L 138 (137-145) mmol/L Potassium 4.3 4.3 (3.5-5.1) mmol/L Chloride 103 104 (98-107) mmol/L Carbon Dioxide 26 28 (22-30) mmol/L BUN 13 12 (9-20) mg/dL Creatinine 0.69 0.81 (0.66-1.25) mg/dL Glucose 139 H 123 H (74-99) mg/dL Calcium 8.7 8.6 (8.4-10.2) mg/dL Total Bilirubin 0.3 (0.2-1.3) mg/dL AST 21 (17-59) U/L ALT 23 (4-49) U/L Alkaline Phosphatase 64 (38-126) U/L Total Protein 5.8 L (6.3-8.2) g/dL Albumin 3.4 L (3.5-5.0) g/dL
[2024-04-02] MEDS: LACTATED RINGERS 500 ML IV ONE (12:52)
[2024-04-02] MEDS ORDERED: PROPOFOL 10 MG/ML 20 ML VIAL IV ONE (12:52)
--- NOTE | 2024-04-02 15:07 | P.PCN ---
Date of Procedure: 04/02/24 Procedure(s) Performed: PREOPERATIVE DIAGNOSIS: Rectal bleeding POSTOPERATIVE DIAGNOSIS: Prominent internal and external hemorrhoids circumferentially PROCEDURE: Flexible sigmoidoscopy, anoscopy ANESTHESIA: MAC SURGEON: Jevon Basilio M.D. SPECIMENS: None ENDOSCOPIC PROCEDURE: The patient was placed on the endoscopy table in the left decubitus position. The Olympus colonoscope was inserted into the anus and passed under direct visualization to the proximal sigmoid colon. The patient had some liquid brown stool in the sigmoid colon and proximal rectum. In the distal rectum there was noted to be 1 small area of residual blood and mucus seen. There was no evidence of any mucosal abnormalities within the rectum to explain recent bleeding. The patient had circumferential internal and external hemorrhoids present with some mild inflammatory changes especially with the internal hemorrhoids. There was no evidence of thrombosis. There was no erosions or lacerations over the hemorrhoids to explain the recent heavy bleeding. The anoscope was utilized as well. Circumferentially the anal canal and hemorrhoids were carefully examined. We could not reproduce any bleeding or identify the exact source. I do suspect the bleeding was from the patient's hemorrhoids. No visible fistula or fissure was present. The patient was taken to the recovery room in stable condition per anesthesia guidelines. RECOMMENDATIONS: Resume diet. Anusol suppositories and hemorrhoidal cream will be prescribed. Recheck hemoglobin tomorrow. Spoke with the patient's at length. His last colonoscopy showed diverticulosis and that was less than 1.5 years ago. We did discuss the option of prepping for a full colonoscopy however given the proximal sigmoid colon brown stool I do not suspect that we would find any proximal bleeding site. Would treat conservatively for now. Recommend colorectal surgery evaluation as outpatient to discuss possible stapled hemorrhoidopexy given the circumferential nature of these large hemorrhoids.
--- NOTE | 2024-04-02 17:20 | P.HPIM ---
History of Present Illness H&P Date: 04/02/24 Chief Complaint: Bleeding per rectum Pleasant 63-year-old patient who follows with Dr. Redman. Chronic medical condition include, GERD, hypertension, obstructive sleep apnea, uses CPAP, migraines, psoriasis, COVID in 2020. Patient does as intermittent blood per rectum because has known hemorrhoids. Last 5 days patient been having more bright red blood per rectum. In the [place] plan. No dizziness no lightheadedness. Amount has been more than normal. Denies any abdominal pain. No dizziness no lightheadedness. No fever no chills. No rectal pain. Patient's hemoglobin on presentation was 6.8. Was given 2 units of blood. Review of systems: GEN.: None EYES: None HEENT: None NECK: None RESPIRATORY: None CARDIOVASCULAR: None GASTROINTESTINAL: [As above GENITOURINARY: None MUSCULOSKELETAL: None LYMPHATICS: None HEMATOLOGICAL: None PSYCHIATRY: None NEUROLOGICAL: None Social history: . Retired. Stopped smoking 5 years ago. Physical examination: VITAL SIGNS: 98.4, 75, 11, 137 x 64, 97% GENERAL: BMI 36.3, laying in bed awake comfortable. EYES: Pupils equal. Conjunctiva sloan l. HEENT: External appearance of nose and ears normal, oral cavity grossly normal. NECK: JVD not raised; masses not palpable. HEART: First and second heart sounds are normal; no edema. LUNGS: Respiratory rate normal; clear to auscultation. ABDOMEN: Soft, nontender, liver spleen not palpable, no masses palpable. PSYCH: Alert and oriented x3; mood and affect sloan l. MUSCULOSKELETAL:No Clubbing/cyanosis;muscles-grossly intact NEUROLOGICAL: Cranial nerves grossly intact; no facial asymmetry, power and sensation grossly intact. LYMPHATICS: No lymph nodes palpable in the axilla and neck INVESTIGATIONS, reviewed in the clinical context: April 01, 2024: White count 9 hemoglobin 6.8 platelets 372 sodium 135 potassium 4.[address] abdomen pelvis: Polycystic kidney. Assessment plan: -Acute significant blood loss anemia with fresh blood per rectum. Patient has known hemorrhoids. Also patient has possibly history of diverticulosis. Patient also is concerned that patient had prostate biopsy through the colon if that area is bleeding. 2 units of PRBC transfused. Follow H&H. N.p.o. Dr. Basilio from general surgery consulted. Planning lower endoscopy today -Essential hypertension Lisinopril. Amlodipine. -GERD PPI -BPH Proscar 5 mg a day -Obstructive sleep apnea uses CPAP -Psoriasis Given the complexity and severity of patient's condition expect the patient to be in the hospital at least for 2 overnights Past Medical History Past Medical History: GERD/Reflux, Hypertension, Skin Disorder, Sleep Apnea/CPAP/BIPAP Additional Past Medical History / Comment(s): migraines; psoriasis; cpap set at 11. had COVID 2019-continues to experience some shortness of breath and loss of taste History of Any Multi-Drug Resistant Organisms: None Reported Past Surgical History: Hernia Repair, Orthopedic Surgery Additional Past Surgical History / Comment(s): surgery for abdominal cyst; sinus surgery; rt shoulder surgery; achilles tendon-left; right foot spur removed; right eye vitreous detachment; right eye cataract; left eye glaucoma; precancer removed from face; excisional biopsy of left breast lipoma 03/03/20; excisional biopsy of two right breast lipomas 02/23/20; Past Anesthesia/Blood Transfusion Reactions: No Reported Reaction Past Psychological History: No Psychological Hx Reported Smoking Status: Former smoker Past Alcohol Use History: Rare Past Drug Use History: None Reported - Past Family History Mother Family Medical History: No Reported History Additional Family Medical History / Comment(s): materal grandmother breast cancer Father Family Medical History: Cancer Additional Family Medical History / Comment(s): bladder cancer; Medications and Allergies Home Medications Medication Instructions Recorded Confirmed Type Cetirizine HCl [Zyrtec] 10 mg PO HS 11/23/16 04/01/24 History Docusate [Colace] 200 mg PO HS 08/02/21 04/01/24 History Finasteride [Proscar] 5 mg PO DAILY 08/02/21 04/01/24 History Latanoprost/Pf [Latanoprost 0.005% 1 drop LEFT EYE HS 08/02/21 04/01/24 History Eye Drop] amLODIPine [Norvasc] 5 mg PO HS 08/02/21 04/01/24 History lisinopriL 40 mg PO DAILY 08/02/21 04/01/24 History Aspirin/Acetaminophen/Caffeine 2 tab PO DAILY PRN 04/01/24 04/01/24 History [Excedrin Migraine Caplet] Budesonide 1 mg INHALATION RT-BID 04/01/24 04/01/24 History [employer] Multivitamin 1 tab PO DAILY 04/01/24 04/01/24 History Iron(Unknown Dose) 1 tab PO TUSA 04/01/24 04/01/24 History Omeprazole 40 mg PO DAILY 04/01/24 04/01/24 History Vit C/E/Zn/Coppr/Lutein/Zeaxan 2 cap PO DAILY 04/01/24 04/01/24 History [Preservision Areds 2 Softgel] Allergies Allergy/AdvReac Type Severity Reaction Status Date / Time Penicillins Allergy Severe Anaphylaxis Verified 04/01/24 17:23 Physical Exam Vitals: Vital Signs Temp Pulse Pulse Resp BP BP Pulse Ox 04/02/24 16:48 98.5 F 80 14 150/73 97 04/02/24 12:40 72 20 131/67 99 04/02/24 11:53 85 20 132/79 98 04/02/24 10:00 75 20 135/68 98 04/02/24 09:00 75 20 130/60 98 04/02/24 08:16 81 04/02/24 08:07 75 04/02/24 07:41 85 16 142/84 96 04/02/24 06:00 76 12 142/84 98 04/02/24 04:37 98.4 F 75 11 L 137/64 97 04/02/24 04:00 70 15 144/67 97 04/02/24 02:35 98.1 F 76 19 130/60 98 04/02/24 02:15 98.1 F 76 15 135/73 97 04/02/24 02:05 98.1 F 85 12 140/66 97 04/02/24 00:06 04/01/24 22:51 98.0 F 80 18 140/61 96 04/01/24 21:21 04/01/24 21:07 98.3 F 87 18 165/79 04/01/24 18:20 98.0 F 91 18 175/90 96 04/01/24 18:00 98.0 F 81 16 151/78 04/01/24 17:45 98.2 F 83 16 136/62 FiO2 04/02/24 16:48 04/02/24 12:40 04/02/24 11:53 04/02/24 10:00 04/02/24 09:00 04/02/24 08:16 04/02/24 08:07 04/02/24 07:41 04/02/24 06:00 04/02/24 04:37 04/02/24 04:00 04/02/24 02:35 04/02/24 02:15 04/02/24 02:05 04/02/24 00:06 21 04/01/24 22:51 04/01/24 21:21 21 04/01/24 21:07 04/01/24 18:20 04/01/24 18:00 04/01/24 17:45 Intake and Output 04/02/24 04/02/24 04/02/24 06:59 14:59 22:59 Intake Total 310 200 Balance 310 200 Intake: IV 200 Blood Product 310 Rc As-1 Unit 310 [id number] Other: Weight 121.563 kg Results CBC & Chem 7: 04/02/24 06:51 04/02/24 06:51 Labs: Abnormal Lab Results - Last 24 Hours (Table) 04/01/24 04/02/24 04/02/24 Range/Units 15:22 00:34 06:51 RBC 2.35 L 2.71 L (4.30-5.90) m/uL Hgb 7.1 L 8.0 L (13.0-17.5) gm/dL Hct 21.5 L 24.9 L (39.0-53.0) % Glucose (74-99) mg/dL Crossmatch See Detail 04/02/24 Range/Units 06:51 RBC (4.30-5.90) m/uL Hgb (13.0-17.5) gm/dL Hct (39.0-53.0) % Glucose 123 H (74-99) mg/dL Crossmatch Thrombosis Risk Factor Assmnt - Choose All That Apply Any of the Below Risk Factors Present?: Yes Each Factor Represents 1 point: Obesity (BMI >25) Other Risk Factors: Yes Each Risk Factor Represents 2 Points: Age 61-74 years Other congenital or acquired thrombophilia - If yes, enter type in comment: No Thrombosis Risk Factor Assessment Total Risk Factor Score: 3 Thrombosis Risk Factor Assessment Level: Moderate Risk
[2024-04-02] MEDS: HYDROCORTISONE SUPPOSITORY 25 MG SUPP RECTAL SCH (20:22)
[2024-04-02] MEDS: BENZOCAINE 20% HEMORRHOIDAL OINT 28GM RECTAL SCH (20:23)
[2024-04-03 08:00] VITALS: RESP 14
[2024-04-03 10:03] LABS: Basophils % (A) 0 %; Eosinophils # (A) 0.2 k/uL (0-0.7); Eosinophils % (A) 3 %; HCT 24.1 % (39.0-53.0); HGB 7.8 gm/dL (13.0-17.5); Hypochromasia Moderate; Lymphocytes # (A) 1.7 k/uL (1.0-4.8); Lymphocytes % (A) 22 %; MCH 29.6 pg (25.0-35.0); MCHC 32.4 g/dL (31.0-37.0); MCV 91.5 fL (80.0-100.0); Mean Platelet Volume 8.5; Monocytes # (A) 0.5 k/uL (0-1.0); Monocytes % (A) 7 %; Neutrophils # (A) 5.3 k/uL (1.3-7.7); Neutrophils % (A) 67 %; Platelet Count 358 k/uL (150-450); Poikilocytosis Slight; RBC 2.64 m/uL (4.30-5.90); RDW 15.1 % (11.5-15.5); WBC 7.9 k/uL (3.8-10.6)
[2024-04-03 11:51] VITALS: BP 155/86; PULSE 80; TEMP 98.1
--- NOTE | 2024-04-03 12:02 | P.PN ---
Subjective Progress Note Date: 04/03/24 SURGICAL PROGRESS NOTE CHIEF COMPLAINT: Rectal bleeding HISTORY OF PRESENT ILLNESS: Patient is status post flexible sigmoidoscopy. Results reported prominent internal and external hemorrhoids circumferentially. Patient continues to have rectal bleeding. He reports bright red blood per rectum with 2 bowel movements last night and again this morning. Hemoglobin is stable at 7.8. He is using the Anusol suppositories. Denies any rectal pain. PHYSICAL EXAM: VITAL SIGNS: Reviewed. GENERAL: Well-developed in no acute distress. ABDOMEN: Soft. Nondistended. Nontender. NEUROLOGIC: Alert and oriented. Cranial nerves II through XII grossly intact. ASSESSMENT: 1. Rectal bleeding due to hemorrhoids 2. Prominent internal and external hemorrhoids circumferentially noted on flexible sigmoidoscopy PLAN: -Continue Anusol suppositories and hemorrhoidal cream -Recommend colorectal surgery eval outpatient for possible stapled hemorrhoidopexy given the circumferential nature of these large hemorrhoids Physician Cell Lead note has been reviewed by physician. Signing provider agrees with the documented findings, assessment, and plan of care. I have personally seen and examined the patient, reviewed the SHIRT HEMMER /PAs history, exam and MDM and agree with the assessment and plan as written. Based on total visit time, I have performed more than 50% of the visit. As above: Patient still having some oozing rectally. Bedside rectal examination reveals no active bleeding. Circumferential hemorrhoids again seen. Continue topical and suppositories. Continue stool softeners. Will refer for stapled hemorrhoidal pexy. May discharge. Objective - Vital Signs Vital signs: Vital Signs Temp 98.1 F 04/03/24 11:51 Pulse 80 04/03/24 11:51 Resp 14 04/03/24 11:51 BP 155/86 04/03/24 11:51 Pulse Ox 97 04/03/24 11:51 FiO2 21 04/02/24 00:06 Intake & Output 04/02/24 04/03/24 04/03/24 18:59 06:59 18:59 Intake Total 318 240 Balance 318 240 Weight 121.563 kg 121.6 kg Intake: IV 200 Oral 118 240 Other: Voiding Method Toilet Toilet Toilet # Voids 1 # Bowel Movements 1 - Labs CBC & Chem 7: 04/03/24 06:40 04/02/24 06:51 Labs: Abnormal Lab Results - Last 24 Hours (Table) 04/03/24 Range/Units 06:40 RBC 2.64 L (4.30-5.90) m/uL Hgb 7.8 L (13.0-17.5) gm/dL Hct 24.1 L (39.0-53.0) %
--- NOTE | 2024-04-03 14:06 | P.DS ---
Providers Date of admission: 04/02/24 12:34 Expected date of discharge: 04/03/24 Attending physician: Easton Salvador Consults: 04/01/24 20:00 Consult Physician Urgent Consulting Provider: Jevon Basilio Reason/Comments: hematochezia Do you want consulting provider notified?: Already Contacted Primary care physician: [facility] Course: Chief Complaint: Bleeding per rectum Pleasant 63-year-old patient who follows with Dr. Redman. Chronic medical condition include, GERD, hypertension, obstructive sleep apnea, uses CPAP, migraines, psoriasis, COVID in 2019. Patient does as intermittent blood per rectum because has known hemorrhoids. Last 5 days patient been having more bright red blood per rectum. In the [place] plan. No dizziness no lightheadedness. Amount has been more than normal. Denies any abdominal pain. No dizziness no lightheadedness. No fever no chills. No rectal pain. Patient's hemoglobin on presentation was 6.8. Was given 2 units of blood. April 03: Sigmoidoscopy was unremarkable except for severe hemorrhoids. Hemoglobin 7.[address] Basilio had a lengthy talk with the patient. Will have the patient follow-up with colorectal surgery for surgical intervention. He will get in touch with the patient. He spoke Raymond to the patient and the . Otherwise patient hemodynamically stable. Social history: . Retired. Stopped smoking 5 years ago. Physical examination: VITAL SIGNS: 98.1, 80, 14, 1 5586, 97% room air GENERAL: BMI 36.3, laying in bed awake comfortable. EYES: Pupils equal. Conjunctiva sloan l. HEENT: External appearance of nose and ears normal, oral cavity grossly normal. NECK: JVD not raised; masses not palpable. HEART: First and second heart sounds are normal; no edema. LUNGS: Respiratory rate normal; clear to auscultation. ABDOMEN: Soft, nontender, liver spleen not palpable, no masses palpable. PSYCH: Alert and oriented x3; mood and affect sloan l. INVESTIGATIONS, reviewed in the clinical context: April 03: Hemoglobin 7.8 April 01, 2024: White count 9 hemoglobin 6.8 platelets 372 sodium 135 potassium 4.[address] abdomen pelvis: Polycystic kidney. Assessment plan: -Acute significant blood loss anemia with fresh blood per rectum. From severe hemorrhoids 2 units of PRBC transfused. Iron supplement Dr. Basilio from general surgery -Severe hemorrhoids causing intermittent bleeding Anusol HC Dr. Reyes arranged for patient to follow-up with colorectal surgery outpatient. -Essential hypertension Lisinopril. Amlodipine. -GERD PPI -BPH Proscar 5 mg a day -Obstructive sleep apnea uses CPAP -Psoriasis Disposition: Home Past Medical History Past Medical History: GERD/Reflux, Hypertension, Skin Disorder, Sleep Apnea/CPAP/BIPAP Additional Past Medical History / Comment(s): migraines; psoriasis; cpap set at 11. had COVID thanks2019-continues to experience some shortness of breath and loss of taste History of Any Multi-Drug Resistant Organisms: None Reported Past Surgical History: Hernia Repair, Orthopedic Surgery Additional Past Surgical History / Comment(s): surgery for abdominal cyst; sinus surgery; rt shoulder surgery; achilles tendon-left; right foot spur removed; right eye vitreous detachment; right eye cataract; left eye glaucoma; precancer removed from face; excisional biopsy of left breast lipoma 03/03/20; excisional biopsy of two right breast lipomas 02/23/20; Past Anesthesia/Blood Transfusion Reactions: No Reported Reaction Past Psychological History: No Psychological Hx Reported Smoking Status: Former smoker Past Alcohol Use History: Rare Past Drug Use History: None Reported Plan - Discharge Summary New Discharge Prescriptions: New Hydrocortisone Suppository [Anusol-Hc] 25 mg RECTAL BID #60 suppositor Continue Cetirizine HCl [Zyrtec] 10 mg PO HS lisinopriL 40 mg PO DAILY Latanoprost/Pf [Latanoprost 0.005% Eye Drop] 1 drop LEFT EYE HS Finasteride [Proscar] 5 mg PO DAILY [employer] Multivitamin 1 tab PO DAILY Aspirin/Acetaminophen/Caffeine [Excedrin Migraine Caplet] 2 tab PO DAILY PRN PRN Reason: Migraine Headache Iron(Unknown Dose) 1 tab PO TUSA amLODIPine [Norvasc] 5 mg PO HS Omeprazole 40 mg PO DAILY Vit C/E/Zn/Coppr/Lutein/Zeaxan [Preservision Areds 2 Softgel] 2 cap PO DAILY Budesonide 1 mg INHALATION RT-BID Discontinued Docusate [Colace] 200 mg PO HS Discharge Medication List Cetirizine HCl [Zyrtec] 10 mg PO HS 10/13/17 [History] Finasteride [Proscar] 5 mg PO DAILY 08/02/21 [History] Latanoprost/Pf [Latanoprost 0.005% Eye Drop] 1 drop LEFT EYE HS 08/02/21 [History] amLODIPine [Norvasc] 5 mg PO HS 08/02/21 [History] lisinopriL 40 mg PO DAILY 08/02/21 [History] Aspirin/Acetaminophen/Caffeine [Excedrin Migraine Caplet] 2 tab PO DAILY PRN 04/01/24 [History] Budesonide 1 mg INHALATION RT-BID 04/01/24 [History] [employer] Multivitamin 1 tab PO DAILY 04/01/24 [History] Iron(Unknown Dose) 1 tab PO TUSA 04/01/24 [History] Omeprazole 40 mg PO DAILY 04/01/24 [History] Vit C/E/Zn/Coppr/Lutein/Zeaxan [Preservision Areds 2 Softgel] 2 cap PO DAILY 04/01/24 [History] Hydrocortisone Suppository [Anusol-Hc] 25 mg RECTAL BID #60 suppositor 04/03/24 [Rx] Follow up Appointment(s)/Referral(s): Jevon Basilio MD [Medical Doctor] - 1-2 Days (April 08 1:10) Ed Redman DO [Primary Care Provider] - 1-2 days (Office to call patient ) Patient Instructions/Handouts: Abdominal Pain (GEN), Anemia (GEN) Activity/Diet/Wound Care/Special Instructions: colace as before - OTC Discharge Disposition: HOME SELF-CARE
== END 2024-04-03 12:36 | disposition home or self-care (01) | DRG 394 ==
LOC: EC 14:26 → 3SCARD 20:03 → OBSVTOIN 04-02 12:34 → 3SCARD 04-02 13:13
PROVIDERS: ADMIT Hospitalist; ATTEND Hospitalist
PROC: 30233N1 Transfusion of Nonautologous Red Blood Cells into Peripheral Vein, Percutaneous Approach (ICD-10-PCS; 2024-04-01)
PROC: 0DJD8ZZ Inspection of Lower Intestinal Tract, Via Natural or Artificial Opening Endoscopic (ICD-10-PCS; principal; 2024-04-02 08:30)
DX: K64.8 Other hemorrhoids (principal); D62 Acute posthemorrhagic anemia; I10 Essential (primary) hypertension; G43.909 Migraine, unspecified, not intractable, without status migrainosus; G47.33 Obstructive sleep apnea (adult) (pediatric); K21.9 Gastro-esophageal reflux disease without esophagitis; K64.4 Residual hemorrhoidal skin tags; L40.9 Psoriasis, unspecified; H40.9 Unspecified glaucoma; Z79.82 Long term (current) use of aspirin; Z79.899 Other long term (current) drug therapy; Z86.16 Personal history of COVID-19; Z87.891 Personal history of nicotine dependence; Z88.0 Allergy status to penicillin
CPT/HCPCS: 36415; 36430; 45330; 74174; 80048; 80053; 82272; 85025; 86850; 86900; 86901; 86920; 94640; 94660; 99285